=== PATIENT | female | born 1945 | race Caucasian/White ===

== ENCOUNTER 2020-05-19 08:38 | Emergency (ER) | payer MEDICARE, SELFPAY ==
[2020-05-19] VITALS (12 sets, daily range): BP systolic 131–175; BP diastolic 67–90; PULSE 50–82; RESP 14–24; TEMP 36.4–37; O2SAT 94–98; BMI 24.9
--- NOTE | 2020-05-19 08:42 | CTR_ITS ---
PROCEDURE INFORMATION: Exam: CT Head Without Contrast Exam date and time: 05/19/2020 8:44 AM Age: 74 years old Clinical indication: Altered mental status/memory loss; Confusion or disorientation TECHNIQUE: Imaging protocol: Computed tomography of the head without contrast. Radiation optimization: All CT scans at this facility use at least one of these dose optimization techniques: automated exposure control; mA and/or kV adjustment per patient size (includes targeted exams where dose is matched to clinical indication); or iterative reconstruction. COMPARISON: No relevant prior studies available. RADIATION DOSE METRICS: Total DLP (mGy-cm): 715.36 FINDINGS: Brain: No abnormal densities. No hemorrhage. Unremarkable white matter. No mass effect. Cerebral ventricles: There is generalized prominence of the ventricles and sulci indicating chronic atrophy. Bones/joints: Unremarkable. No acute fracture. Paranasal sinuses: Visualized sinuses are unremarkable. No fluid levels. Mastoid air cells: Visualized mastoid air cells are well aerated. Soft tissues: Unremarkable. CT/CT head wo con* [id number] IMPRESSION: No acute intracranial abnormality. Radiation Dose CTDIVOL = (mGy): DLP = 715.36 (mGy-cm)
--- NOTE | 2020-05-19 08:46 | ED_ITS ---
HPI - Altered Mental Status General: Chief Complaint: Altered Mental Status Stated Complaint: AMS; HALLUCINATIONS Time Seen by Provider: 05/19/20 08:39 Source: patient and EMS Mode of arrival: EMS Limitations: no limitations History of Present Illness: HPI narrative: 74-year-old female presents here by EMS for confusion along with hallucinations. Spoke to patient and sister dave singh has been having auditory hallucinations. She believes there is been people in and out of her house and trying to limit her basement. Sister states she has had some slight confusion in her believes she may have dementia. Patient is able answer all my questions here appropriately currently. Does seem to be that she has been having some hallucinations. Patient has been tearful here states that at times she is scared for her life. She states she believes there is been people at her house that may harm her and speak to family has not been anyone in the house. Review of Systems Const: Denies: fever(s), chills, body aches or change in appetite Eyes: Denies: blurry vision or eye discomfort ENMT: Denies: throat pain or dental pain Card: Denies: chest pain Resp: Denies: dyspnea GI: Denies: abdominal pain, nausea, vomiting or diarrhea : Denies: dysuria Musc: Denies: neck pain or back pain Skin/Breast: Denies: rash Neuro: Reports: confusion Psych: Reports: paranoia Errol/Lymph: Denies: easy bruising All/Imm: Denies: urticaria Physical Exam Const: COMMON NORMALS: no acute distress, patient oriented x3 and healthy appearing HENMT: COMMON NORMALS: normocephalic and atraumatic HEAD & SCALP: normocephalic and atraumatic Eye: COMMON NORMALS: Equal, round and reactive pupils present and EOMs intact bilaterally PUPIL: Yes Equal, round and reactive pupils present Neck/C-Spine: COMMON NORMALS: full ROM and supple Chest: COMMONS NORMALS: normal inspection of the chest and normal palpation of entire chest wall Resp: COMMON NORMALS: normal respiratory effort, No retractions, No use of accessory muscles and clear to auscultation bilaterally AUSCULTATION: clear to auscultation bilaterally Cardio: COMMON NORMALS: regular rate, regular rhythm and No murmurs present (Cardio) RATE: regular rate RHYTHM: regular rhythm GI: COMMON NORMALS: Normal to inspection, nondistended, normoactive bowel sounds present, Soft to palpation, non-tender and no masses PALPATION: Yes Soft to palpation Extremity: COMMON NORMALS: normal to inspection and full ROM Neuro: COMMON NORMALS: patient oriented x3, moves all extremities and no focal motor deficits Psych: COMMON NORMALS: mental status grossly normal, Normal thought process present and cooperative THOUGHT PROCESS: Normal thought process present Skin: COMMON NORMALS: no rashes or lesions noted and no wounds GENERAL SKIN EXAM: no rashes or lesions noted Course Vital Signs: Vital signs: Vital Signs Temperature 97.6 F 05/19/20 15:33 Pulse Rate 56 L 05/19/20 15:33 Respiratory Rate 18 05/19/20 15:33 Blood Pressure 162/87 05/19/20 15:33 Pulse Oximetry 96 05/19/20 15:33 MDM - Altered Mental Status MDM Narrative: Medical decision making narrative: Patient presents here with hallucinations along with depression. Patient is medically cleared and well- appearing here. Spoke to psychiatrist at [facility] who is excepting. Patient has been voluntarily wanting to be placed for hallucinations. She is medically cleared and stable at this time. Lab Data: Labs: Lab Results 05/19/20 05/19/20 05/19/20 Range/Units 09:07 09:07 09:20 WBC 5.2 (4.0-10.0) 10^3/ uL RBC 4.42 (4.1-5.3) 10^6/u L Hgb 13.3 (11.5-15.3) g/dL Hct 41.6 (37.0-47.0) % MCV 94.1 (81-99) fL MCH 30.1 (28.0-34.0) pg MCHC 32.0 (30.0-36.0) g/dL RDW 12.3 (12.1-15.1) % Plt Count 155 (130-400) 10^3/c mm MPV 12.5 H (7.4-10.4) fL Neut % (Auto) 75.9 % Lymph % (Auto) 15.0 % [place] % (Auto) 8.1 % Eos % (Auto) 0.2 % Baso % (Auto) 0.6 % Neut # (Auto) 3.95 (1.8-7.7) 10^3/u L Lymph # (Auto) 0.8 (0.8-4.8) 10^3/u L [place] # (Auto) 0.4 (0.2-0.9) 10^3/u L Eos # (Auto) 0.0 (0.0-0.8) 10^3/u L Baso # (Auto) 0.0 (0.0-0.1) 10^3/u L Nucleated RBC % (a uto) 0 % Nucleated RBCs # 0.0 /100WBC Sodium (136-145) mmol/L Potassium (3.5-5.1) mmol/L Chloride (98-107) mmol/L Carbon Dioxide (22-29) mmol/L Anion Gap (5-19) BUN (8-23) mg/dL Creatinine (0.5-0.9) mg/dL GFR Calculation Glucose (65-115) mg/dL Calculated Osmolal ity (285-295) mOsm/k g Calcium (8.5-10.5) mg/dL Total Bilirubin (0.15-1.2) mg/dL AST (0-32) U/L ALT (0-33) U/L Alkaline Phosphata se (35-105) IU/L Total Protein (6.6-8.7) g/dL Albumin (3.5-5.2) g/dL Globulin (1.3-4.6) g/dL Urine Color Straw (Yellow) Urine Appearance Hazy A (CLEAR) Urine pH 9 H (5-7) Ur Specific Gravit y 1.015 (1.005-1.030) Urine Protein Neg (Negative) Urine Glucose (UA) 1+ (Normal) Urine Ketones Negative (Negative) Urine Blood 2+ H (Negative) Urine Nitrate Negative (Negative) Urine Bilirubin Neg (Negative) Urine Urobilinogen Norm (Negative) mg/dL Ur Leukocyte Maggie ase Negative (Negative) Urine RBC 0-4 H (0-2) /hpf Urine WBC 5-10 H (0-5) /hpf Ur Squamous Epith Cells 5-10 H (0-5) /hpf Amorphous Sediment 3+ /hpf Urine Bacteria Trace (NONE) /hpf Salicylates (3-10) mg/dL Urine Opiates Scre en Negative (Negative) ng/mL Acetaminophen (10-30) ug/mL Ur Barbiturates Sc reen Negative (Negative) ng/mL Ur Phencyclidine S crn Negative (Negative) ng/mL Ur Amphetamines Sc reen Negative (Negative) ng/mL U Benzodiazepines Scrn Negative (Negative) ng/mL Urine Cocaine Scre en Negative (Negative) ng/mL U Marijuana (THC) Screen Negative (Negative) ng/mL Ethyl Alcohol (0-10) mg/dL Influenza Type A A g (Negative) Influenza Type B A g (Negative) SARS-CoV-2 Ag (Rap id) (Negative) 05/19/20 05/19/20 05/19/20 Range/Units 09:20 13:43 13:43 WBC (4.0-10.0) 10^3/ uL RBC (4.1-5.3) 10^6/u L Hgb (11.5-15.3) g/dL Hct (37.0-47.0) % MCV (81-99) fL MCH (28.0-34.0) pg MCHC (30.0-36.0) g/dL RDW (12.1-15.1) % Plt Count (130-400) 10^3/c mm MPV (7.4-10.4) fL Neut % (Auto) % Lymph % (Auto) % [place] % (Auto) % Eos % (Auto) % Baso % (Auto) % Neut # (Auto) (1.8-7.7) 10^3/u L Lymph # (Auto) (0.8-4.8) 10^3/u L [place] # (Auto) (0.2-0.9) 10^3/u L Eos # (Auto) (0.0-0.8) 10^3/u L Baso # (Auto) (0.0-0.1) 10^3/u L Nucleated RBC % (a uto) % Nucleated RBCs # /100WBC Sodium 145 (136-145) mmol/L Potassium 3.2 L (3.5-5.1) mmol/L Chloride 103 (98-107) mmol/L Carbon Dioxide 30 H (22-29) mmol/L Anion Gap 15.2 (5-19) BUN 16 (8-23) mg/dL Creatinine 0.7 (0.5-0.9) mg/dL GFR Calculation Not Reportable Glucose 229 H (65-115) mg/dL Calculated Osmolal ity 308 H (285-295) mOsm/k g Calcium 10.0 (8.5-10.5) mg/dL Total Bilirubin 0.5 (0.15-1.2) mg/dL AST 13 (0-32) U/L ALT 10 (0-33) U/L Alkaline Phosphata se 83 (35-105) IU/L Total Protein 8.1 (6.6-8.7) g/dL Albumin 4.2 (3.5-5.2) g/dL Globulin 3.9 (1.3-4.6) g/dL Urine Color (Yellow) Urine Appearance (CLEAR) Urine pH (5-7) Ur Specific Gravit y (1.005-1.030) Urine Protein (Negative) Urine Glucose (UA) (Normal) Urine Ketones (Negative) Urine Blood (Negative) Urine Nitrate (Negative) Urine Bilirubin (Negative) Urine Urobilinogen (Negative) mg/dL Ur Leukocyte Maggie ase (Negative) Urine RBC (0-2) /hpf Urine WBC (0-5) /hpf Ur Squamous Epith Cells (0-5) /hpf Amorphous Sediment /hpf Urine Bacteria (NONE) /hpf Salicylates < 0.3 L (3-10) mg/dL Urine Opiates Scre en (Negative) ng/mL Acetaminophen < 5.0 L (10-30) ug/mL Ur Barbiturates Sc reen (Negative) ng/mL Ur Phencyclidine S crn (Negative) ng/mL Ur Amphetamines Sc reen (Negative) ng/mL U Benzodiazepines Scrn (Negative) ng/mL Urine Cocaine Scre en (Negative) ng/mL U Marijuana (THC) Screen (Negative) ng/mL Ethyl Alcohol < 10 (0-10) mg/dL Influenza Type A A g Negative (Negative) Influenza Type B A g Negative (Negative) SARS-CoV-2 Ag (Rap id) Negative (Negative) Imaging Data^: CT Head: Radiologist's impression: [address] [address] [address] Scan Report Signed Patient: Claire Milian Unit #: [id number] : 1945 Age/Sex: 74 / F ADM Date: 05/19/20 Loc: ER Room/Bed: Attending Dr: Ordering Provider/Ordering MD: Claus Magallanes MD Date of Service: 05/19/20 Procedure(s): CT head wo con* [id number] Accession Number(s): [id number] Report Number: [id number] PROCEDURE INFORMATION: Exam: CT Head Without Contrast Exam date and time: 05/19/2020 8:44 AM Age: 74 years old Clinical indication: Altered mental status/memory loss; Confusion or disorientation TECHNIQUE: Imaging protocol: Computed tomography of the head without contrast. Radiation optimization: All CT scans at this facility use at least one of these dose optimization techniques: automated exposure control; mA and/or kV adjustment per patient size (includes targeted exams where dose is matched to clinical indication); or iterative reconstruction. COMPARISON: No relevant prior studies available. RADIATION DOSE METRICS: Total DLP (mGy-cm): 715.36 FINDINGS: Brain: No abnormal densities. No hemorrhage. Unremarkable white matter. No mass effect. Cerebral ventricles: There is generalized prominence of the ventricles and sulci indicating chronic atrophy. Bones/joints: Unremarkable. No acute fracture. Paranasal sinuses: Visualized sinuses are unremarkable. No fluid levels. Mastoid air cells: Visualized mastoid air cells are well aerated. Soft tissues: Unremarkable. CT/CT head wo con* [id number] IMPRESSION: No acute intracranial abnormality. CXR: Radiologist's impression: [place] [address] XRay Report Signed Patient: Claire Milian Unit #: [id number] : 1945 Age/Sex: 74 / F ADM Date: 05/19/20 Loc: ER Room/Bed: Attending Dr: Ordering Provider/Ordering MD: Claus Magallanes MD Date of Service: 05/19/20 Procedure(s): XR chest 1V portable [id number] Accession Number(s): [id number] Report Number: [id number] PROCEDURE INFORMATION: Exam: XR Chest, 1 View Exam date and time: 05/19/2020 2:01 PM Age: 74 years old Clinical indication: Other: AMS; Additional info: Transfer protocol TECHNIQUE: Imaging protocol: XR of the chest Views: 1 view. COMPARISON: No relevant prior studies available. FINDINGS: Lungs: Unremarkable. No consolidation. Pleural space: Unremarkable. No pleural effusion. No pneumothorax. Heart/Mediastinum: Unremarkable. No cardiomegaly. Bones/joints: Unremarkable. XR/XR chest 1V portable [id number] IMPRESSION: No acute findings. EKG Data^: EKG 1: Attestation: I personally reviewed and interpreted this EKG as follows: EKG interpretation date: 05/19/20 EKG interpretation time: 09:12 Interpretation: nsr hr [address] or t wave abnormalities qrs 111 qtc 445 Discharge Plan Discharge Patient Disposition: Xfer Other Clinical Impression: Hallucinations, Depression Condition: Stable Coding Level of Care Code ED Embossing Clerk for Chg Fwd Exam Comprehensive
--- NOTE | 2020-05-19 08:52 | ECG_ITS ---
[facility] Test Date: 2020-05-19 Pat Name: Claire Milian Department: Room: Gender: Female Risk Reduction Counselor: : 1945 Requested By: Claus Magallanes Order Number: [id number] Tayler MD: Meseret Lorenzo M.D. Measurements Intervals [place] Rate: 76 P: 61 IL: 116 QRS: -44 QRSD: 111 T: 43 QT: 415 QTc: 468 Interpretive Statements SINUS RHYTHM WITH SHORT IL INTERVAL LEFT AXIS DEVIATION [QRS AXIS < -30] SEPTAL MYOCARDIAL INFARCTION , OF INDETERMINATE AGE [40+ ms Q WAVE IN V1/V2] MODERATE T-WAVE ABNORMALITY, CONSIDER ANTERIOR ISCHEMIA Compared to ECG 12/10/2017 20:22:00 Short IL interval now present Myocardial infarct finding now present T-wave abnormality now present Possible ischemia now present Incomplete right bundle-branch block no longer present Left ventricular hypertrophy no longer present Electronically Signed On 05-19-2020 12:08:49 CDT by Meseret Lorenzo M.D. [id number]
[2020-05-19 09:40] LABS: Basophils % 0.6 %; Eosinophils % 0.2 %; Hematocrit 41.6 % (37.0-47.0); Hemoglobin 13.3 g/dL (11.5-15.3); Lymphocytes # 0.8 10^3/uL (0.8-4.8); Mean Corpuscular Hemoglobin 30.1 pg (28.0-34.0); Mean Corpuscular Volume 94.1 fL (81-99); Mean Platelet Volume 12.5 fL (7.4-10.4); Monocytes # 0.4 10^3/uL (0.2-0.9); Monocytes % 8.1 %; Neutrophils # 3.95 10^3/uL (1.8-7.7); Neutrophils % 75.9 %; Nucleated Red Blood Cells % 0 %; Platelet Count 155 10^3/cmm (130-400); Red Blood Count 4.42 10^6/uL (4.1-5.3); Red Cell Distribution Width 12.3 % (12.1-15.1); White Blood Count 5.2 10^3/uL (4.0-10.0)
[2020-05-19 09:50] LABS: Amphetamines Screen Urine Negative (Negative); Barbiturates Screen Urine Negative (Negative); Benzodiazepines Screen Urine Negative (Negative); Cocaine Screen Urine Negative (Negative); Opiate Screen Urine Negative (Negative); PCP Screen Urine Negative (Negative); THC Screen Urine Negative (Negative)
[2020-05-19 09:55] LABS: Bilirubin Urine Neg (Negative); Blood Urine 2+ (Negative); Glucose Urine UA 1+ (Normal); Ketones Urine Negative (Negative); Nitrate Urine Negative (Negative); Protein Urine Neg (Negative); Specific Gravity, Urine 1.015 (1.005-1.030); Urine Appearance Hazy (CLEAR); Urine Color Straw (Yellow); pH Urine 9 (5-7)
[2020-05-19 09:56] LABS: Add Urine Culture? No; Add Urine Microscopic? YES; Amorphous Sediment Urine 3+ /hpf; Bacteria Urine TRACE /hpf; Leukocyte Esterase Urine Negative (Negative); RBC Urine 0-4 /hpf (0-2); Urobilinogen Urine Norm (Negative)
[2020-05-19 10:02] LABS: Alanine Aminotransferase 10 U/L (0-33); Albumin Level 4.2 g/dL (3.5-5.2); Alkaline Phosphatase 83 IU/L (35-105); Anion Gap 15.2 (5-19); Aspartate Amino Transferase 13 U/L (0-32); Blood Urea Nitrogen 16 mg/dL (8-23); Carbon Dioxide 30 mmol/L (22-29); Chloride 103 mmol/L (98-107); Creatinine Clr Calc Pharmacy 58.4612; Globulin 3.9 g/dL (1.3-4.6); Glucose 229 mg/dL (65-115); Osmolality Calculated 308 mOsm/kg (285-295); Potassium 3.2 mmol/L (3.5-5.1); Sodium 145 mmol/L (136-145); Total Bilirubin 0.5 mg/dL (0.15-1.2); Total Protein 8.1 g/dL (6.6-8.7)
[2020-05-19 10:09] LABS: Acetaminophen < 5.0 ug/mL (10-30); Alcohol Level < 10 mg/dL (0-10); Salicylate < 0.3 mg/dL (3-10)
[2020-05-19] MEDS: metoprolol tartrate 50 mg Tablet PO (10:37)
--- NOTE | 2020-05-19 11:12 | PC.NURSE ---
Need 2 trays
--- NOTE | 2020-05-19 13:40 | XRR_ITS ---
PROCEDURE INFORMATION: Exam: XR Chest, 1 View Exam date and time: 05/19/2020 2:01 PM Age: 74 years old Clinical indication: Other: AMS; Additional info: Transfer protocol TECHNIQUE: Imaging protocol: XR of the chest Views: 1 view. COMPARISON: No relevant prior studies available. FINDINGS: Lungs: Unremarkable. No consolidation. Pleural space: Unremarkable. No pleural effusion. No pneumothorax. Heart/Mediastinum: Unremarkable. No cardiomegaly. Bones/joints: Unremarkable. XR/XR chest 1V portable [id number] IMPRESSION: No acute findings.
[2020-05-19 14:15] LABS: Influenza A by IFA Negative (Negative); Influenza B by IFA Negative (Negative); SARS Covid-2 Antigen Negative (Negative)
--- NOTE | 2020-05-19 14:50 | PC.NURSE ---
Swabbed for Admission
[2020-05-19] MEDS: LORazepam 1 mg Tablet PO (17:16)
--- NOTE | 2020-05-19 19:01 | PC.NURSE ---
patient report received from CT Scott and care transferred to CT Marmolejo
== END 2020-05-19 21:30 | disposition other institution (70) ==
PROVIDERS: Emergency Provider Emergency Medicine
DX: F32.9 Major depressive disorder, single episode, unspecified (principal); R44.0 Auditory hallucinations
CPT/HCPCS: 12345; 70450; 71045; 80053; 80306; 80307; 81001; 85025; 87426; 87804; 93005; 99284; 99285

== ENCOUNTER 2020-07-10 09:26 | Inpatient (IN) | payer MEDICARE, SELFPAY ==
[2020-07-10] VITALS (48 sets, daily range): BP systolic 77–176; BP diastolic 48–94; PULSE 43–84; RESP 12–27; TEMP 36.4–36.7; O2SAT 83–99; BMI 21.4
--- NOTE | 2020-07-10 09:47 | XR_ITS ---
WS: [id number] XR chest 1V portable [id number] REASON FOR EXAM: dyspnea FINDINGS: On the previous examination of 05/19/2020 left lower lung field was clear with sharp definition of th e left ventricle and diaphragm. Currently there is blunting of the left costophrenic angle and an int erstitial infiltrative pattern seen in the left lower lobe with some obscuration of the left heart noemí rder and left diaphragm. Tortuous thoracic aorta normal heart. XR/XR chest 1V portable [id number] IMPRESSION: Interval change in the left lower chest as described above. The findings are of unknown chronicity but compatible with acute/subacute pneumonitis.
--- NOTE | 2020-07-10 09:49 | CT_ITS ---
WS: [id number] CT CHEST ANGIOGRAPHY WITH REFORMATS HISTORY: dyspnea TECHNIQUE: Contiguous axial images are obtained through the chest during arterial injection of intrav enous contrast. Images are reconstructed to evaluate the pulmonary arteries. MIP imaging also reviewe d. All CT scans at [facility] use at least one of these dose optimization techniques: aut omated exposure control; mA and/or kV adjustment per patient size (includes targeted exams where dose is matched to clinical indication); or iterative reconstruction. CONTRAST: Omnipaque 350; 95 mL IV. DLP: 483.38 mGy.cm COMPARISON: None available. Very good opacification of the pulmonary arteries. No pulmonary emboli are identified. Mild atheroscl erosis aorta. No aneurysm. Heart size is very slightly enlarged. Dense areas of consolidation at the lung bases consistent with atelectasis. Partial atelectasis of the RIGHT lower lobe. Complete atelect asis of the LEFT lower lobe. There is slight LEFT lateral deviation of the heart due to the volume lo ss in the LEFT thorax. Nasogastric tube is in good position. Endotracheal tube is also in good position. Small mediastinal a nd hilar lymph nodes. Subcarinal lymph node is the largest measuring 9 mm. Mild pulmonary hyperexpans ion. There are a few scattered areas of groundglass attenuation in the periphery of the LEFT upper lo be with interstitial thickening minimal in the RIGHT middle and RIGHT lower lobes. No pleural effusio n. There is a large cyst in the superior RIGHT lobe the liver measuring 9.0 x 10.2 cm. Mild anterior wedging of T6. 30% compression fracture of T6. CT/CT angio chest PE protcl [id number] IMPRESSION: 1. No pulmonary embolism. 2. Complete atelectasis LEFT lower lobe. 3. Partial atelectasis RIGHT lower lobe. 4. Nasogastric and endotracheal tubes are in good position.
[2020-07-10 09:59] LABS: Basophils # 0.1 10^3/uL (0.0-0.1); Basophils % 0.4 %; Eosinophils % 0.3 %; Hematocrit 42.3 % (37.0-47.0); Hemoglobin 13.5 g/dL (11.5-15.3); Lymphocytes # 0.5 10^3/uL (0.8-4.8); Lymphocytes % 3.5 %; Mean Corpuscular HGB Conc 31.9 g/dL (30.0-36.0); Mean Corpuscular Hemoglobin 29.7 pg (28.0-34.0); Mean Platelet Volume 11.9 fL (7.4-10.4); Monocytes # 0.6 10^3/uL (0.2-0.9); Monocytes % 4.2 %; Neutrophils % 91.1 %; Nucleated Red Blood Cells % 0 %; Platelet Count 122 10^3/cmm (130-400); Red Blood Count 4.55 10^6/uL (4.1-5.3); Red Cell Distribution Width 13.2 % (12.1-15.1); White Blood Count 13.5 10^3/uL (4.0-10.0)
[2020-07-10 10:11] LABS: Alanine Aminotransferase 35 U/L (0-33); Albumin Level 3.1 g/dL (3.5-5.2); Alkaline Phosphatase 65 IU/L (35-105); Blood Urea Nitrogen 37 mg/dL (8-23); C Reactive Protein 310.2 mg/L (0.0-4.9); Carbon Dioxide 26 mmol/L (22-29); Chloride 97 mmol/L (98-107); Creatinine Clr Calc Pharmacy 54.8733; Globulin 4.6 g/dL (1.3-4.6); Glucose 291 mg/dL (65-115); Lactic Sepsis W/Reflex 1.7 mmol/L (0.5-2.2); Magnesium 2.5 mg/dL (1.7-2.3); Osmolality Calculated 303 mOsm/kg (285-295); Sodium 137 mmol/L (136-145); Total Bilirubin 0.3 mg/dL (0.15-1.2); Total Protein 7.7 g/dL (6.6-8.7)
[2020-07-10] MEDS: succinylcholine 20 mg/mL SDV 10mL 80 MG IV (10:12)
[2020-07-10] MEDS: vecuronium 10 mg SDV IVP (10:21)
[2020-07-10 10:22] LABS: Anion Gap 18.1 (5-19); Aspartate Amino Transferase 25 U/L (0-32); Lactate Dehydrogenase 218 U/L (135-214); Potassium 4.1 mmol/L (3.5-5.1)
--- NOTE | 2020-07-10 10:52 | PC.NURSE ---
RSI began at 1009. ED physician, Nure *1, RT *1, and nurse tech *1 in room. Pt intubated at 1013. 8.0 ETtube 22 in at teeth. Pt tolerated procedure well.
[2020-07-10 11:01] LABS: Fibrinogen 804 mg/dL (174-498)
[2020-07-10 11:03] LABS: D Dimer 0.96 ug/mIFEU (0-0.59)
--- NOTE | 2020-07-10 11:05 | ED_ITS ---
HPI - COVID General: Chief Complaint: COVID symptoms Stated Complaint: ams Time Seen by Provider: 07/10/20 09:47 Triage information: Has fever, cough or shortness of breath . Exposure to COVID + person last 14 days History of Present Illness: HPI Narrative: 74-year-old female from a [facility] who was tested positive for Covid about 12 to 13 days ago. Comes in with increasing shortness of breath. She is currently on 15 L by mask and still satting in the low 80s. We confirmed on her paperwork she is a full code and discussed with the family and they would still want her to be a full code. She has dementia and is aphasic. MD complaint: known COVID positive Prior covid testing: yes, results known Prior testing date: 06/27/20 COVID 19 common symptoms: positive cough, non-productive cough and dyspnea Treatment prior to arrival: oxygen COVID Results: SARS-CoV-2 Antigen (Rapid) Negative (Negative) 05/19/20 13:43 05/19/20 Review of Systems General: Reports: ROS unobtainable due to medical condition and ROS unobtainable due to mental status Resp: Reports: dyspnea and non-productive cough PFS ED PFSH: Medical History (Updated 07/10/20 @ 14:00 by Joey Wynn MD) COVID-19 Dementia Physical Exam HENMT: COMMON NORMALS: normocephalic, atraumatic and hearing grossly normal bilaterally HEAD & SCALP: normocephalic and atraumatic Neck/C-Spine: COMMON NORMALS: no JVD Resp: AUSCULTATION: rhonchi, wheezes and diminished lung sounds Cardio: COMMON NORMALS: no JVD, regular rate, regular rhythm and No murmurs present (Cardio) RATE: regular rate RHYTHM: regular rhythm GI: COMMON NORMALS: Soft to palpation and No hepatosplenomegaly present AUSCULTATION: Yes normoactive bowel sounds PALPATION: Yes Soft to palpation, No Tenderness to palpation present (GI), No Guarding due to palpation present (GI) and Yes No hepatosplenomegaly present Extremity: COMMON NORMALS: normal to inspection, capillary refill normal, no clubbing, cyanosis or edema, no calf tenderness and no pedal edema Procedures Intubation Time out performed: Yes sedative: Etomidate paralytic: Succinylcholine Laryngoscope: fiber optic video scope Assist Device Used: fiber optic device ET Tube Size: 8 ET Tube Uncuffed: No Tube Secured Depth (cm): 22 Tube Secured Location: teeth Tube Placement Confirmation: visualized tube passing through cords, equal breath sounds bilaterally, no breath sounds over epigastrium and confirmation by capnometry Patient Tolerated Procedure: well Intubation Complications: none Course Vital Signs: Vital signs: Vital Signs Temperature 97.9 F 07/10/20 09:31 Pulse Rate 58 L 07/10/20 13:47 Respiratory Rate 20 H 07/10/20 13:47 Blood Pressure 92/60 07/10/20 13:47 Pulse Oximetry 89 L 07/10/20 13:47 MDM - COVID MDM Narrative: Medical decision making narrative: Confirmed full CODE STATUS with the family. Patient was emergently intubated by RSI. Patient tolerated well and is improving her oxygen sats will cover with IV antibiotics and start remdesivir dexamethasone discussed with Lab Data: Labs: Lab Results 07/10/20 07/10/20 07/10/20 Range/Units 09:30 09:30 09:30 WBC 13.5 H (4.0-10.0) 10^3/ uL RBC 4.55 (4.1-5.3) 10^6/u L Hgb 13.5 (11.5-15.3) g/dL Hct 42.3 (37.0-47.0) % MCV 93.0 (81-99) fL MCH 29.7 (28.0-34.0) pg MCHC 31.9 (30.0-36.0) g/dL RDW 13.2 (12.1-15.1) % Plt Count 122 L (130-400) 10^3/c mm MPV 11.9 H (7.4-10.4) fL Neut % (Auto) 91.1 % Lymph % (Auto) 3.5 % [place] % (Auto) 4.2 % Eos % (Auto) 0.3 % Baso % (Auto) 0.4 % Neut # (Auto) 12.30 H (1.8-7.7) 10^3/u L Lymph # (Auto) 0.5 L (0.8-4.8) 10^3/u L [place] # (Auto) 0.6 (0.2-0.9) 10^3/u L Eos # (Auto) 0.0 (0.0-0.8) 10^3/u L Baso # (Auto) 0.1 (0.0-0.1) 10^3/u L Nucleated RBC % (a uto) 0 % Nucleated RBCs # 0.0 /100WBC Fibrinogen 804 H (174-498) mg/dL D-Dimer 0.96 H (0-0.59) ug/mIFE U Specimen Type Sample Site ABG pH (7.35-7.45) ABG pCO2 (35-45) mmHg ABG pO2 (80.0-100.0) mmH g ABG HCO3 (22-26) mmol/L ABG O2 Saturation ABG Base Excess (-2.0-2.0) mmol/ L Beto Test A-a O2 Gradient Hematocrit (37-47) % Hgb O2 Saturation (95-100) % Carboxyhemoglobin (0.4-20.1) %THgb Methemoglobin (0.4-1.5) % Total Hemoglobin (12-16) g/dL Ionized Calcium (1.1-1.4) mmol/L O2 Delivery Device FiO2 % Sales Broker ID Sodium 137 (136-145) mmol/L Potassium 4.1 (3.5-5.1) mmol/L Chloride 97 L (98-107) mmol/L Carbon Dioxide 26 (22-29) mmol/L Anion Gap 18.1 (5-19) BUN 37 H (8-23) mg/dL Creatinine 0.8 (0.5-0.9) mg/dL GFR Calculation Not Reportable Glucose 291 H (65-115) mg/dL Calculated Osmolal ity 303 H (285-295) mOsm/k g Lactic Acid (0.5-2.2) mmol/L Calcium 9.0 (8.5-10.5) mg/dL Magnesium 2.5 H (1.7-2.3) mg/dL Total Bilirubin 0.3 (0.15-1.2) mg/dL AST 25 (0-32) U/L ALT 35 H (0-33) U/L Alkaline Phosphata se 65 (35-105) IU/L Lactate Dehydrogen ase 218 H (135-214) U/L C-Reactive Protein 310.2 H (0.0-4.9) mg/L Total Protein 7.7 (6.6-8.7) g/dL Albumin 3.1 L (3.5-5.2) g/dL Globulin 4.6 (1.3-4.6) g/dL 07/10/20 07/10/20 07/10/20 Range/Units 09:30 09:38 11:10 WBC (4.0-10.0) 10^3/ uL RBC (4.1-5.3) 10^6/u L Hgb (11.5-15.3) g/dL Hct (37.0-47.0) % MCV (81-99) fL MCH (28.0-34.0) pg MCHC (30.0-36.0) g/dL RDW (12.1-15.1) % Plt Count (130-400) 10^3/c mm MPV (7.4-10.4) fL Neut % (Auto) % Lymph % (Auto) % [place] % (Auto) % Eos % (Auto) % Baso % (Auto) % Neut # (Auto) (1.8-7.7) 10^3/u L Lymph # (Auto) (0.8-4.8) 10^3/u L [place] # (Auto) (0.2-0.9) 10^3/u L Eos # (Auto) (0.0-0.8) 10^3/u L Baso # (Auto) (0.0-0.1) 10^3/u L Nucleated RBC % (a uto) % Nucleated RBCs # /100WBC Fibrinogen (174-498) mg/dL D-Dimer (0-0.59) ug/mIFE U Specimen Type Arterial Arterial Sample Site Radial , left Radial , left ABG pH 7.49 H 7.44 (7.35-7.45) ABG pCO2 35.8 37.3 (35-45) mmHg ABG pO2 48.0 L 86.7 (80.0-100.0) mmH g ABG HCO3 27.0 H 25.3 (22-26) mmol/L ABG O2 Saturation 86.8 98 ABG Base Excess 3.7 H 1.3 (-2.0-2.0) mmol/ L Beto Test Pos Na A-a O2 Gradient Not Reportable Not Reportable Hematocrit 42.5 4.3 L (37-47) % Hgb O2 Saturation 85.3 L 97.7 (95-100) % Carboxyhemoglobin 0.9 0.5 (0.4-20.1) %THgb Methemoglobin 0.7 Not Reportable (0.4-1.5) % Total Hemoglobin 13.9 14.0 (12-16) g/dL Ionized Calcium 1.1 1.1 (1.1-1.4) mmol/L O2 Delivery Device Oxymask Vent FiO2 60.0 % Sales Broker ID [employer] Sodium 142.0 144.0 H (136-145) mmol/L Potassium 3.9 3.7 (3.5-5.1) mmol/L Chloride (98-107) mmol/L Carbon Dioxide (22-29) mmol/L Anion Gap (5-19) BUN (8-23) mg/dL Creatinine (0.5-0.9) mg/dL GFR Calculation Glucose 311.0 H 289.0 H (65-115) mg/dL Calculated Osmolal ity (285-295) mOsm/k g Lactic Acid 1.7 (0.5-2.2) mmol/L Calcium (8.5-10.5) mg/dL Magnesium (1.7-2.3) mg/dL Total Bilirubin (0.15-1.2) mg/dL AST (0-32) U/L ALT (0-33) U/L Alkaline Phosphata se (35-105) IU/L Lactate Dehydrogen ase (135-214) U/L C-Reactive Protein (0.0-4.9) mg/L Total Protein (6.6-8.7) g/dL Albumin (3.5-5.2) g/dL Globulin (1.3-4.6) g/dL COVID Results: SARS-CoV-2 Antigen (Rapid) Negative (Negative) 05/19/20 13:43 05/19/20 Critical Care Time Critical Care Time: Critical Care Time: Yes Total Critical Care Time: 30 Attestation: This case had a high probability of a clinically significant, sudden, or life threatening deterioration of this patient's condition which required my full and direct attention, intervention and personal management. Discharge Plan Discharge Patient Disposition: Admitted As Inpatient Clinical Impression: COVID-19, Dementia, Pneumonia, Aphasia Condition: Stable Coding Level of Care Code ED [employer] Dean for Chg Fwd Exam Detailed
[2020-07-10 11:32] LABS: ABG PCO2 37.3 mmHg (35-45); ABG PH Result 7.44 (7.35-7.45); Base Excess ABG 1.3 mmol/L (-2.0-2.0); Blood Gas Operator Identificat CAK; HCO3 ABG 25.3 mmol/L (22-26); Oxygen Device VENT; Oxygen Saturation ABG 98; PO2 ABG 86.7 mmHg (80.0-100.0); Potassium Level - ABG 3.7 mmol/L (3.5-5.0)
[2020-07-10 11:33] LABS: Arterial Blood Gas Hematocrit 4.3 % (37-47); Blood Gas Sample Type Arterial
[2020-07-10 11:34] LABS: Carboxyhemoglobin 0.5 %THgb (0.4-20.1); HGB O2 Sat 97.7 % (95-100); Ionized Calcium Level - ABG 1.1 mmol/L (1.1-1.4)
[2020-07-10 11:34] LABS: ABG PCO2 35.8 mmHg (35-45); ABG PH Result 7.49 (7.35-7.45)
[2020-07-10 11:35] LABS: Base Excess ABG 3.7 mmol/L (-2.0-2.0); Blood Gas Allen Test POS; Blood Gas Operator Identificat CAK; Oxygen Device OXYMASK; Oxygen Saturation ABG 86.8; Potassium Level - ABG 3.9 mmol/L (3.5-5.0)
[2020-07-10 11:36] LABS: Arterial Blood Gas Hematocrit 42.5 % (37-47); Blood Gas Sample Type Arterial; Carboxyhemoglobin 0.9 %THgb (0.4-20.1); HGB O2 Sat 85.3 % (95-100); Ionized Calcium Level - ABG 1.1 mmol/L (1.1-1.4); Methemoglobin 0.7 % (0.4-1.5); Total Hemoglobin 13.9 g/dL (12-16)
--- NOTE | 2020-07-10 11:43 | XR_ITS ---
WS: [id number] XR chest 1V portable [id number] REASON FOR EXAM: TUBE PLACMENT FINDINGS: Since the previous examination earlier today there is been placement of an endotracheal tube and naso gastric tube which appear in proper position. Compared to the chest x-ray preintubation and nasogastric tube placement, there is opacification of t he medial aspect of the left hemithorax with obscuration of the hemidiaphragm. No other interval change. XR/XR chest 1V portable [id number] IMPRESSION: Nasogastric tube and endotracheal tube placement as above with atelectasis of m edial aspect of the left lower lobe.
--- NOTE | 2020-07-10 11:48 | PC.NURSE ---
pt to CT by stretcher with RT and tech
[2020-07-10] MEDS: iohexol 350 mg/mL 100 mL Btl IV (11:50)
[2020-07-10] MEDS: propofol 1,000 MG/100 ML INJ 1.7 MG IV (12:23)
[2020-07-10] MEDS: dexamethasone 4 mg/mL INJ 6 MG IVP (13:30)
[2020-07-10] MEDS: remdesivir 200 MG in sodium chloride 0.9% (100 ml) 100 ML 100 MG IV (13:30)
--- NOTE | 2020-07-10 13:47 | P.HP_ITS ---
Providers/Chief Complaint Chief Complaint: ams History of Present Illness Claire Milian is a 74 year old female, resident of nursing facility at [facility] was brought to emergency department with worsening mentation and significant desaturation. She was using at nursing facility 5 L by nasal cannula at the baseline and required 15 L to bring saturations to 80s. Patient end up being intubated in ER after Dr. Batista discussed with patient's . Apparently was not able to see patient for the last several months. He reported that patient frequently was unable to recognize him. In emergency department patient had significant amount of thick phlegm suctioned and it was sent to lab for Gram stain and culture. She was diagnosed with Covid 19 infection couple weeks ago. In ER patient was started on dexamethasone and remdesivir as well as Levaquin. CTA showed no evidence of PE but significant atelectasis in both bases. Patient's hospital already left and I was unable to discuss with him. History is limited. Review of Systems Narrative: Unable to obtain as patient is intubated and sedated. Medications/Allergies Home Medications Medication Instructions Recorded Confirmed Last Taken Type acetaminophen 650 mg PO QID PRN 07/10/20 07/10/20 07/09/20 History alprazolam 0.25 mg PO Q8H PRN 07/10/20 07/10/20 07/10/20 History bisacodyl 10 mg NC DAILY PRN 07/10/20 07/10/20 Unknown History dexamethasone 6 mg PO DAILY@14 07/10/20 07/10/20 07/09/20 History divalproex [Depakote ER] 250 mg PO TID@08,,07/10/20 07/10/20 07/09/20 History magnesium hydroxide [Milk of 30 ml PO DAILY PRN 07/10/20 07/10/20 Unknown History Magnesia] olanzapine 5 mg PO QID@00,06,12,18 07/10/20 07/10/20 07/10/20 History pantoprazole 20 mg PO DAILY@06 07/10/20 07/10/20 07/10/20 History sennosides-docusate sodium 1 tab-cap PO DAILY@08 07/10/20 07/10/20 07/09/20 History [Senna-S] tramadol 50 mg PO Q8H PRN 07/10/20 07/10/20 07/09/20 History trazodone 50 mg PO BEDTIME@20 07/10/20 07/10/20 07/09/20 History Allergies Allergy/AdvReac Type Severity Reaction Status Date / Time No Known Allergies Allergy Verified 07/10/20 09:37 PFSH Acute PFSH: Medical History (Updated 07/10/20 @ 14:00 by Joey Wynn MD) COVID-19 Dementia Vitals/I&O/Wt Last Vital Signs Temp 97.9 F 07/10/20 09:31 Pulse 82 07/10/20 12:23 Resp 16 07/10/20 12:50 BP 167/72 07/10/20 12:23 Pulse Ox 90 07/10/20 12:23 07/09/20 07/10/20 07/10/20 22:59 06:59 14:59 Intake Total 4.833 / 4.833 Balance 4.833 / 4.833 Weight last 48 hrs Weight 56.699 kg Physical Exam Const: COMMON NORMALS: no acute distress HENMT: COMMON NORMALS: normocephalic and atraumatic HEAD & SCALP: normocephalic and atraumatic Eye: COMMON NORMALS: conjunctivae normal and no scleral icterus CONJUNCTIVA: Yes conjunctivae normal Neck/C-Spine: COMMON NORMALS: no lymphadenopathy Lymph: LYMPHATIC: no lymphadenopathy noted Resp: OTHER: Minimal bibasilar Rales Cardio: COMMON NORMALS: regular rate, regular rhythm and No murmurs present (Cardio) RATE: regular rate RHYTHM: regular rhythm OTHER: No lower extremity edema GI: COMMON NORMALS: Soft to palpation PALPATION: Yes Soft to palpation RECTAL EXAM: deferred Extremity: COMMON NORMALS: normal to inspection and capillary refill normal Neuro: COMMON NORMALS: no focal motor deficits (On gross examination) SENSORIUM/ORIENTATION: Yes alert Psych: OTHER: Intubated and sedated. Skin: COMMON NORMALS: no rashes or lesions noted Urinary Catheter Management^: Santos: Cath Placed During This Visit: yes Urinary Catheter Date of Insertion: 07/10/20 Urinary Catheter Time of Insertion: 10:20 Data : 07/10/20 09:30 07/10/20 09:30 Micro: Microbiology 07/10/20 10:30 Blood Culture - Preliminary Blood SPECIMEN COLLECTED 07/10/20 09:30 Blood Culture - Preliminary Blood SPECIMEN COLLECTED A&P Assessment and plan (1) Acute on chronic respiratory failure with hypoxia: Status: Acute (2) Community acquired pneumonia: Status: Acute (3) Thrombocytopenia: Most likely related to infection Status: Acute (4) Dehydration: Status: Acute (5) Sepsis: As exhibited by tachypnea and leukocytosis. Patient was not tachycardic and was afebrile on presentation. Status: Acute (6) Dementia: Status: Acute (7) COVID-19: Status: Inactive (8) Diabetes mellitus type 2 in nonobese: Status: Acute Additional A&P Information PLAN: Continue with dexamethasone and remdesivir. Continue with Levaquin and add Zosyn for now as aspiration cannot be completely ruled out. Awaiting culture results. We will gently hydrate with LR. We will try obtaining more information from nursing facility. Attestations Medical Necessity Statement*: Patient with respiratory failure requires close ICU monitoring and treatment. Time Spent in Patient Care: Greater than 35 minutes Coding Level of Care Code Acute Street Commissioner for [facility] Fwd Diagnoses Acute on chronic respiratory failure with hypoxia J96.21 Community acquired pneumonia J18.9 Thrombocytopenia D69.6 Dehydration E86.0 Sepsis A41.9 Dementia F03.90 COVID-19 U07.1 Diabetes mellitus type 2 in nonobese E11.9
[2020-07-10] MEDS: levofloxacin-dextrose 5 % 750 MG/150 ML PREMIX 100 MG IV (14:59)
[2020-07-10] MEDS: piperacillin-tazobactam 3.375 GM in sodium chloride 0.9% (plus) 50 ML IV (16:39)
[2020-07-10] MEDS: enoxaparin 40 mg/0.4 mL Syringe SUBCUT (16:40)
[2020-07-10] MEDS: lactated ringers 1,000 ML 50 ML IV (16:40)
--- NOTE | 2020-07-10 17:53 | PC.NURSE ---
Versed hanging but not infusing when patient arrived from ED. No orders for versed, medication was wasted with Ashia Hinds RN. Dr. Wynn notified of patient's hypotension. Orders received. See SEP.
[2020-07-10] MEDS: OLANZapine 5 mg ODT PO (17:55)
[2020-07-10] MEDS: lactated ringers 1,000 ML 500 ML IV ×2 (18:00→19:43)
[2020-07-10 19:29] LABS: Glucose Point of Care 241 mg/dL (70-110)
[2020-07-11] VITALS (56 sets, daily range): BP systolic 71–129; BP diastolic 45–62; PULSE 38–55; RESP 12–21; TEMP 36.1–36.5; O2SAT 88–98
[2020-07-11] MEDS: piperacillin-tazobactam 3.375 GM in sodium chloride 0.9% (plus) 50 ML IV ×3 (00:26→16:40)
[2020-07-11] MEDS: OLANZapine 5 mg ODT PO ×5 (00:26→23:07)
[2020-07-11 03:54] LABS: Blood Gas Sample Site Brachial, right; Blood Gas Sample Type Arterial; Blood Gas Tidal Volume 0.45
[2020-07-11 04:25] LABS: Basophils % 0.3 %; Hematocrit 32.6 % (37.0-47.0); Hemoglobin 10.3 g/dL (11.5-15.3); Lymphocytes # 0.4 10^3/uL (0.8-4.8); Lymphocytes % 3.5 %; Mean Corpuscular HGB Conc 31.6 g/dL (30.0-36.0); Mean Platelet Volume 13.5 fL (7.4-10.4); Monocytes # 0.7 10^3/uL (0.2-0.9); Monocytes % 5.9 %; Neutrophils # 10.25 10^3/uL (1.8-7.7); Neutrophils % 89.7 %; Nucleated Red Blood Cells % 0 %; Platelet Count 103 10^3/cmm (130-400); Red Blood Count 3.43 10^6/uL (4.1-5.3); Red Cell Distribution Width 13.3 % (12.1-15.1); White Blood Count 11.4 10^3/uL (4.0-10.0)
[2020-07-11 04:52] LABS: Alanine Aminotransferase 23 U/L (0-33); Albumin Level 2.1 g/dL (3.5-5.2); Alkaline Phosphatase 54 IU/L (35-105); Anion Gap 13.1 (5-19); Aspartate Amino Transferase 10 U/L (0-32); Blood Urea Nitrogen 28 mg/dL (8-23); Calcium 7.8 mg/dL (8.5-10.5); Carbon Dioxide 26 mmol/L (22-29); Chloride 104 mmol/L (98-107); Creatinine Clr Calc Pharmacy 54.8733; Globulin 3.3 g/dL (1.3-4.6); Glucose 219 mg/dL (65-115); Osmolality Calculated 300 mOsm/kg (285-295); Potassium 4.1 mmol/L (3.5-5.1); Sodium 139 mmol/L (136-145); Total Bilirubin 0.2 mg/dL (0.15-1.2); Total Protein 5.4 g/dL (6.6-8.7)
[2020-07-11 05:39] LABS: Slide Review Slide Review Perform
[2020-07-11] MEDS: DOPamine drip 400 MG/250 ML PREMIX 10.6 MG IV (05:45)
[2020-07-11 09:07] LABS: Glucose Point of Care 255 mg/dL (70-110)
[2020-07-11 09:22] LABS: ABG PCO2 53.6 mmHg (35-45); ABG PH Result 7.35 (7.35-7.45); Arterial Blood Gas Hematocrit 35.8 % (37-47); Blood Gas Allen Test Pos; Blood Gas Operator Identificat Anonymous; HCO3 ABG 29.6 mmol/L (22-26); PO2 ABG 81.8 mmHg (80.0-100.0)
--- NOTE | 2020-07-11 09:29 | PM.PN ---
Subjective Subjective: Interval history: Patient is intubated and sedated. Her propofol had to be increased and fentanyl was added for appropriate sedation. Patient has been hypotensive since yesterday. She initially responded to IV fluids last evening but it appears that overnight she was started on dopamine drip. Her platelets slightly down to 103. Her blood cultures growing 1 out of 4 bottles gram-positive cocci in clusters. She became bradycardic yesterday afternoon which suspected to be related to Covid and/or remdesivir treatment. Her albumin significantly declined. I had discussion with patient's this morning over the phone. He reports that 3 weeks ago he visited patient at nursing facility and was able to only see her through a window. Reports that she did not recognize him. 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 We have discussed regarding CODE STATUS considering patient's mental, functional and medical status. wants patient to be a full code for now but is going to discuss this with his daughter. Vitals/I&O/Wt Last Vital Signs Temp 97.7 F 07/11/20 02:15 Pulse 55 L 07/11/20 06:15 Resp 20 H 07/11/20 07:29 BP 129/62 07/11/20 06:15 Pulse Ox 97 07/11/20 06:15 07/10/20 07/11/20 07/11/20 22:59 06:59 14:59 Intake Total 908.333 / 1017.586 150 / 9013.461 6048.167 / 2245.167 Output Total 850 / 850 1400 / 2250 Balance 58.333 / 167.586 -1250 / -2419.396 6340.167 / 2245.167 Weight last 48 hrs Weight 56.699 kg Physical Exam Narrative: EXAM NARRATIVE: Patient is intubated and sedated. Lungs with coarse breath sounds and heart is regular. No lower extremity edema. Abdomen is soft and appears nontender Urinary Catheter Management^: Santos: Cath Placed During This Visit: yes Reason for Continuing Indwelling Catheter: Accurate Measurement of Urinary Output in Critically Ill Patients Urinary Catheter Date of Insertion: 07/10/20 Urinary Catheter Time of Insertion: : Data : 07/11/20 03:28 07/11/20 03:28 Micro: Microbiology 07/10/20 10:30 Blood Culture - Preliminary Blood Gram positive cocci 07/10/20 10:35 Gram Stain - Final Sputum - Endotracheal Tube Aspirate 07/10/20 09:30 Blood Culture - Preliminary Blood SPECIMEN COLLECTED A&P Assessment and plan (1) Acute on chronic respiratory failure with hypoxia: Status: Acute (2) Community acquired pneumonia: Status: Acute (3) Thrombocytopenia: Most likely related to infection Status: Acute (4) Dehydration: Status: Acute (5) Sepsis: As exhibited by tachypnea and leukocytosis. Patient was not tachycardic and was afebrile on presentation. Status: Acute (6) Dementia: Status: Acute (7) COVID-19: Status: Inactive (8) Diabetes mellitus type 2 in nonobese: Status: Acute (9) Hypotension: Likely multifactorial with dehydration, bradycardia and medications playing a role. Status: Acute (10) Bradycardia: Status: Acute Additional A&P Information PLAN: Continue with dexamethasone and remdesivir. Continue Levaquin and Zosyn for now. We will add vancomycin at this point although this appears to be a contamination a true infection cannot be ruled out.. Repeat blood cultures were ordered. We will request echocardiogram and EKG for further evaluation. Patient's is planning to visit patient at 4:00 and I will discuss with him Attestations Medical Necessity Statement*: Patient with respiratory failure requires close ICU monitoring and treatment. Coding Level of Care Code Acute Applique Cutter for [facility] Diagnoses Acute on chronic respiratory failure with hypoxia J96.21 Community acquired pneumonia J18.9 Thrombocytopenia D69.6 Dehydration E86.0 Sepsis A41.9 Dementia F03.90 COVID-19 U07.1 Diabetes mellitus type 2 in nonobese E11.9 Hypotension I95.9 Bradycardia R00.1
--- NOTE | 2020-07-11 09:51 | ECG_ITS ---
[facility] ED Test Date: 2020-07-11 Pat Name: Claire Milian Department: Room: ICU19 Gender: Female Non Destructive Testing Scientist: : 1945 Requested By: Joey Wynn Order Number: [id number] Tayler MD: Meseret Lorenzo M.D. Measurements Intervals Samaria Rate: 43 P: 51 NV: 132 QRS: -32 QRSD: 106 T: 59 QT: 513 QTc: 436 Interpretive Statements SINUS BRADYCARDIA MARKED LEFT AXIS DEVIATION [QRS AXIS < -30] POSSIBLE RIGHT VENTRICULAR CONDUCTION DELAY [RSR (QR) IN V1/V2] WARNING: DATA QUALITY MAY AFFECT INTERPRETATION Compared to ECG 05/19/2020 09:12:28 Sinus rhythm no longer present Short NV interval no longer present Myocardial infarct finding no longer present T-wave abnormality no longer present Possible ischemia no longer present Electronically Signed On 07-13-2020 8:52:02 OUTSIDE INDUSTRIAL SALES REPRESENTATIVE by Meseret Lorenzo M.D. [id number]
--- NOTE | 2020-07-11 09:51 | USCV_ITS ---
[facility] Age: 74 Gender: F : 1945 Exam Date: 07/11/2020 09:55 Ordering Phys: Joey Wynn MD Technologist: Prabhjot Solitario [place] [facility] [place]ST [place]IN BP: 98 / 53 HR: 43 Rhythm: Sinus Technical Quality: Fair MEASUREMENTS (Male / Female) Normal Values 2D ECHO LV Diastolic Diameter PLAX 3.9 cm 4.2 - 5.9 / 3.9 - 5.3 cm LV Systolic Diameter PLAX 2.0 cm IVS Diastolic Thickness 1.0 cm 0.6 - 1.0 / 0.6 - 0.9 cm IVS Systolic Thickness 1.2 cm LVPW Diastolic Thickness 1.3 cm 0.6 - 1.0 / 0.6 - 0.9 cm LVPW Systolic Thickness 1.3 cm LVOT Diameter 2.0 cm LV Ejection Fraction 2D Teich 80.9 % LV Ejection Fraction MOD 2C 71.6 % LV Ejection Fraction 2C AL 70.9 % LA Diameter 3.6 cm LA Width 3.7 cm LA Height 5.0 cm RA Width 3.4 cm RA Height 4.1 cm M-MODE LV Diastolic Diameter MM 5.1 cm 4.2 - 5.9 / 3.9 - 5.3 cm LV Systolic Diameter MM 3.4 cm LV Ejection Fraction MM Teich 63.4 % IVS Diastolic Thickness MM 1.0 cm 0.6 - 1.0 / 0.6 - 0.9 cm IVS Systolic Thickness MM 1.6 cm LVPW Diastolic Thickness MM 1.4 cm 0.6 - 1.0 / 0.6 - 0.9 cm LVPW Systolic Thickness MM 1.9 cm RV Diastolic Diameter MM 2.0 cm Aortic Annulus Diameter 3.3 cm LA Ao Ratio MM 1.1 MV E Point Septal Separation 1.0 cm DOPPLER AV Peak Velocity 219.7 cm/s LVOT Peak Velocity 131.0 cm/s AV Area Cont Eq vti 2.0 cm squared AV Area Cont Eq pk 1.9 cm squared MV Area PHT 5.0 cm squared Mitral E to A Ratio 1.1 MV E' Velocity 54.0 cm/s Mitral E to MV E' Ratio 9.8 Mitral E to LV E' Lateral Ratio 9.8 Mitral E to LV E' Septal Ratio 9.8 TR Peak Velocity 308.3 cm/s TR Peak Gradient 38.0 mmHg TV Peak E Velocity 111.0 cm/s Right Atrial Pressure 3.0 mmHg Pulmonary Artery Systolic Pressu 41.0 mmHg PV Peak Velocity 123.0 cm/s FINDINGS Left Ventricle Normal left ventricular size and systolic function, EF 69 %. No regional wall motion abnormalities. Right Ventricle Normal right ventricular size and systolic function. Right Atrium The right atrium is normal in size. Left Atrium The left atrium is normal in size. Mitral Valve Thickened mitral valve. Mild mitral annular calcification. Aortic Valve Thickened aortic valve. Tricuspid Valve Trace to mild tricuspid valve regurgitation. Pulmonic Valve Pulmonic valve not well visualized. Pericardium No pericardial effusion. Aorta Normal ascending aorta dimension. CONCLUSIONS Normal left ventricular size and systolic function, EF 69 %. No regional wall motion abnormalities. Thickened mitral valve. Mild mitral annular calcification. Thickened aortic valve. Trace to mild tricuspid valve regurgitation. Estimated pulmonary artery peak systolic pressure of 41 mmHg There is no pericardial effusion. There are no intracardiac masses. No previous study is available for comparison. Dr Fabian Gibson MD FACC (Electronically Signed) Final Date: 12 July 2020 18:45 S
[2020-07-11] MEDS: valproic acid 250 mg/5 mL UDC OG-TUBE ×3 (09:59→20:10)
[2020-07-11] MEDS: sennosides-docusate Tablet 1 TAB PO (09:59)
[2020-07-11] MEDS: vancomycin 1,000 MG in sodium chloride 0.9% 250 ML 250 MG IV (12:27)
[2020-07-11] MEDS: lactated ringers 1,000 ML 50 ML IV (12:27)
[2020-07-11] MEDS: propofol 1,000 MG/100 ML INJ 2.7 MG IV (16:41)
[2020-07-11] MEDS: enoxaparin 40 mg/0.4 mL Syringe SUBCUT (16:41)
[2020-07-11] MEDS: remdesivir 100 MG in sodium chloride 0.9% (100 ml) 100 ML IV (17:54)
--- NOTE | 2020-07-11 18:24 | PC.NURSE ---
Shift summary: Pt remains intubated and sedated. Her FIO2 has been decreased to 30% from 65%. She has had 2 positive blood cultures, Dr whitmore. She remains bradycardiac. Her B/P remains stable on Dopamine at 5mcg/kg/min. She also has fentanyl and propofol infusing for sedation: 100mcg/hr and 30mcg/kg/min respectively. Her ad daughter came in for a visit and to discuss code status with Dr Wynn. Family also stated pt will be violent when she is off sedation and extubated. They will have her be a AND. She has received her first dose of remdesivir this evening. Urine output 500ml this shift. Noted tourniquet up under her left sleeve still tied from farm technician labs, arm has red stripe but pulses and circulation good.
--- NOTE | 2020-07-11 19:15 | PC.NURSE ---
Report given CT Hussein.
[2020-07-11] MEDS: vancomycin 1,000 MG in sodium chloride 0.9% 250 ML 166 MG IV (23:07)
[2020-07-12] VITALS (30 sets, daily range): BP systolic 95–147; BP diastolic 50–66; PULSE 44–60; RESP 12–19; TEMP 36.5–36.6; O2SAT 93–97
[2020-07-12] MEDS: piperacillin-tazobactam 3.375 GM in sodium chloride 0.9% (plus) 50 ML IV ×4 (00:13→23:54)
[2020-07-12] MEDS: propofol 1,000 MG/100 ML INJ 10.2 MG IV (00:18)
--- NOTE | 2020-07-12 02:22 | PC.RESP ---
O2 sat is 97% on 28% FiO2, decreased Fio2 to 26%. RN notified. Will continue to monitor.
[2020-07-12] MEDS: DOPamine drip 400 MG/250 ML PREMIX 15.9 MG IV (03:28)
[2020-07-12 03:54] LABS: ABG PCO2 36.1 mmHg (35-45); Arterial Blood Gas Hematocrit 37.6 % (37-47); Base Excess ABG 4.6 mmol/L (-2.0-2.0); Blood Gas Sample Type Arterial; Carboxyhemoglobin 0.7 %THgb (0.4-20.1); HCO3 ABG 27.9 mmol/L (22-26); HGB O2 Sat 91.3 % (95-100); Ionized Calcium Level - ABG 1.1 mmol/L (1.1-1.4); Methemoglobin 0.9 % (0.4-1.5); Oxygen Saturation ABG 92.7; PO2 ABG 56.4 mmHg (80.0-100.0); Potassium Level - ABG 3.6 mmol/L (3.5-5.0); Total Hemoglobin 12.3 g/dL (12-16)
[2020-07-12 03:55] LABS: Alveolar-Arterial Oxygen Gradi 11.1 mmHg (5-10); Blood Gas Sample Site Brachial, right; Blood Gas Tidal Volume 0.45; Oxygen Device VENT
[2020-07-12] MEDS: OLANZapine 5 mg ODT PO ×3 (05:37→23:57)
[2020-07-12 06:05] LABS: Basophils % 0.2 %; Hematocrit 36.7 % (37.0-47.0); Hemoglobin 11.5 g/dL (11.5-15.3); Lymphocytes # 0.9 10^3/uL (0.8-4.8); Lymphocytes % 6.9 %; Mean Corpuscular HGB Conc 31.3 g/dL (30.0-36.0); Mean Corpuscular Hemoglobin 29.7 pg (28.0-34.0); Mean Corpuscular Volume 94.8 fL (81-99); Mean Platelet Volume 13.6 fL (7.4-10.4); Monocytes # 0.7 10^3/uL (0.2-0.9); Monocytes % 5.4 %; Neutrophils # 10.99 10^3/uL (1.8-7.7); Neutrophils % 86.6 %; Nucleated Red Blood Cells % 0 %; Platelet Count 137 10^3/cmm (130-400); Red Blood Count 3.87 10^6/uL (4.1-5.3); Red Cell Distribution Width 13.5 % (12.1-15.1); White Blood Count 12.7 10^3/uL (4.0-10.0)
[2020-07-12 06:18] LABS: Alanine Aminotransferase 23 U/L (0-33); Albumin Level 3.1 g/dL (3.5-5.2); Alkaline Phosphatase 58 IU/L (35-105); Blood Urea Nitrogen 21 mg/dL (8-23); Calcium 8.6 mg/dL (8.5-10.5); Carbon Dioxide 26 mmol/L (22-29); Chloride 105 mmol/L (98-107); Globulin 3.3 g/dL (1.3-4.6); Glucose 221 mg/dL (65-115); Osmolality Calculated 302 mOsm/kg (285-295); Sodium 141 mmol/L (136-145); Total Bilirubin 0.4 mg/dL (0.15-1.2); Total Protein 6.4 g/dL (6.6-8.7)
[2020-07-12 06:21] LABS: Creatinine Clr Calc Pharmacy 54.8733
[2020-07-12 06:22] LABS: Anion Gap 14.1 (5-19); Aspartate Amino Transferase 18 U/L (0-32); Potassium 4.1 mmol/L (3.5-5.1)
--- NOTE | 2020-07-12 08:01 | P.PN_ITS ---
Subjective Subjective: Interval history: Patient is intubated and sedated. I had extensive discussion with patient's and daughter at bedside yesterday. wants to make patient DNR and does not want patient to be reintubated if she gets extubated. Daughter at bedside also agrees. Patient continues to be bradycardic and continues to be hypotensive requiring dopamine support. She is saturating in the high 90s on 35% FiO2 and 8 PEEP. She has good urinary output. Her blood cultures showing 2 out of 4 bottles positive from the same set which is likely a contamination. Repeat blood cultures so far negative. reports that patient is going to be wild if sedation is interrupted. We have discussed that we may need to extubate her quickly when her oxygen requirement and overall condition improves. Vitals/I&O/Wt Last Vital Signs Temp 97.7 F 07/12/20 05:00 Pulse 48 L 07/12/20 06:00 Resp 14 07/12/20 06:00 BP 147/62 07/12/20 06:00 Pulse Ox 97 07/12/20 06:00 07/11/20 07/12/20 07/12/20 22:59 06:59 14:59 Intake Total 289.39 / 3044.557 1649.879 / 4694.436 Output Total 1450 / 1450 650 / 2100 Balance -1160.61 / 1594.557 999.879 / 2594.436 Weight last 48 hrs Weight 56.699 kg Weight 56.699 kg Physical Exam Narrative: EXAM NARRATIVE: Patient is intubated and sedated. Lungs with coarse breath sounds and heart is regular. No lower extremity edema. Abdomen is soft and appears nontender Urinary Catheter Management^: Santos: Cath Placed During This Visit: yes Reason for Continuing Indwelling Catheter: Accurate Measurement of Urinary Output in Critically Ill Patients Urinary Catheter Date of Insertion: 07/10/20 Urinary Catheter Time of Insertion: 10:20 Data : 07/12/20 03:05 07/12/20 03:05 Micro: Microbiology 07/10/20 10:35 Gram Stain - Final Sputum - Endotracheal Tube Aspirate Sputum Culture - Preliminary 07/10/20 10:30 Blood Culture - Preliminary Blood Gram positive cocci 07/11/20 09:00 Blood Culture - Preliminary Blood SPECIMEN COLLECTED 07/10/20 09:30 Blood Culture - Preliminary Blood NEGATIVE TO DATE A&P Assessment and plan (1) Acute on chronic respiratory failure with hypoxia: Status: Acute (2) Community acquired pneumonia: Status: Acute (3) Thrombocytopenia: Most likely related to infection Status: Acute (4) Dehydration: Status: Acute (5) Sepsis: As exhibited by tachypnea and leukocytosis. Patient was not tachycardic and was afebrile on presentation. Status: Acute (6) Dementia: Status: Acute (7) COVID-19: Status: Inactive (8) Diabetes mellitus type 2 in nonobese: Status: Acute (9) Hypotension: Likely multifactorial with dehydration, bradycardia and medications playing a role. Status: Acute (10) Bradycardia: Status: Acute Additional A&P Information PLAN: Continue current monitoring and treatment including albumin for now. Awaiting echocardiogram. Patient's bradycardia is likely related to COVID-19 infection and/or remdesivir. Repeat chest x-ray in several days. Attestations Medical Necessity Statement*: Patient with acute hypoxic respite failure requires close ICU monitoring and treatment. Time Spent in Patient Care: 16 - 35 minutes Coding Level of Care Code Acute Educational Program Assistant for [facility] Fwd Diagnoses Acute on chronic respiratory failure with hypoxia J96.21 Community acquired pneumonia J18.9 Thrombocytopenia D69.6 Dehydration E86.0 Sepsis A41.9 Dementia F03.90 COVID-19 U07.1 Diabetes mellitus type 2 in nonobese E11.9 Hypotension I95.9 Bradycardia R00.1
[2020-07-12] MEDS: valproic acid 250 mg/5 mL UDC OG-TUBE ×3 (08:23→20:31)
[2020-07-12] MEDS: sennosides-docusate Tablet 1 TAB PO (08:23)
[2020-07-12] MEDS: pantoprazole DR 40 mg Tablet PO (08:23)
[2020-07-12 12:26] LABS: Vancomycin Trough 10.5 ug/mL (10-15)
[2020-07-12] MEDS: vancomycin 1,000 MG in sodium chloride 0.9% 250 ML 250 MG IV ×2 (13:20→23:57)
[2020-07-12] MEDS: lactated ringers 1,000 ML 50 ML IV (13:41)
[2020-07-12] MEDS: enoxaparin 40 mg/0.4 mL Syringe SUBCUT (18:04)
[2020-07-12] MEDS: remdesivir 100 MG in sodium chloride 0.9% (100 ml) 100 ML IV (18:05)
[2020-07-12] MEDS: DOPamine drip 400 MG/250 ML PREMIX 10.6 MG IV (23:08)
[2020-07-13] VITALS (34 sets, daily range): BP systolic 98–132; BP diastolic 50–64; PULSE 50–59; RESP 12–18; TEMP 36.3–37.2; O2SAT 93–96
[2020-07-13] MEDS: propofol 1,000 MG/100 ML INJ 10.2 MG IV ×3 (01:54→22:07)
[2020-07-13 04:43] LABS: Basophils % 0.2 %; Hematocrit 32.3 % (37.0-47.0); Lymphocytes # 1.2 10^3/uL (0.8-4.8); Lymphocytes % 11.4 %; Mean Corpuscular Hemoglobin 29.1 pg (28.0-34.0); Mean Corpuscular Volume 93.9 fL (81-99); Mean Platelet Volume 12.6 fL (7.4-10.4); Monocytes # 0.5 10^3/uL (0.2-0.9); Monocytes % 4.3 %; Neutrophils # 8.66 10^3/uL (1.8-7.7); Neutrophils % 83.2 %; Nucleated Red Blood Cells % 0 %; Platelet Count 137 10^3/cmm (130-400); Red Blood Count 3.44 10^6/uL (4.1-5.3); Red Cell Distribution Width 13.8 % (12.1-15.1); White Blood Count 10.4 10^3/uL (4.0-10.0)
[2020-07-13 04:45] LABS: ABG PCO2 40.5 mmHg (35-45); ABG PH Result 7.46 (7.35-7.45); Base Excess ABG 4.8 mmol/L (-2.0-2.0); PO2 ABG 57.1 mmHg (80.0-100.0)
[2020-07-13 04:46] LABS: Oxygen Device VENT
[2020-07-13 04:49] LABS: Arterial Blood Gas Hematocrit 32.5 % (37-47)
[2020-07-13] MEDS: OLANZapine 5 mg ODT PO ×4 (05:02→23:54)
[2020-07-13 05:16] LABS: Alanine Aminotransferase 16 U/L (0-33); Alkaline Phosphatase 48 IU/L (35-105); Aspartate Amino Transferase 15 U/L (0-32); Blood Urea Nitrogen 19 mg/dL (8-23); Calcium 8.1 mg/dL (8.5-10.5); Carbon Dioxide 26 mmol/L (22-29); Chloride 109 mmol/L (98-107); Creatinine Clr Calc Pharmacy 54.8733; Globulin 2.9 g/dL (1.3-4.6); Glucose 107 mg/dL (65-115); Osmolality Calculated 303 mOsm/kg (285-295); Sodium 145 mmol/L (136-145); Total Bilirubin 0.7 mg/dL (0.15-1.2); Total Protein 5.9 g/dL (6.6-8.7)
[2020-07-13] MEDS: potassium chloride oral liq 20 mEq/15 mL UDC 40 MEQ PO (08:31)
[2020-07-13] MEDS: piperacillin-tazobactam 3.375 GM in sodium chloride 0.9% (plus) 50 ML IV ×3 (08:31→23:53)
[2020-07-13] MEDS: valproic acid 250 mg/5 mL UDC OG-TUBE ×3 (08:31→20:09)
[2020-07-13] MEDS: pantoprazole DR 40 mg Tablet PO (08:31)
[2020-07-13] MEDS: sennosides-docusate Tablet 1 TAB PO (08:31)
[2020-07-13] MEDS: DOPamine drip 400 MG/250 ML PREMIX 7.4 MG IV (08:33)
--- NOTE | 2020-07-13 08:46 | PM.PN ---
Subjective Subjective: Interval history: Patient is intubated and sedated. She is on 35% FiO2 and PEEP of 8 saturating in the mid 90s. White blood cell count slightly improved. Platelets and hemoglobin appears stable. Potassium is low this morning and 40 mEq was given. Vitals/I&O/Wt Last Vital Signs Temp 97.7 F 07/12/20 05:00 Pulse 52 L 07/13/20 06:00 Resp 12 07/13/20 08:17 BP 99/55 07/13/20 06:00 Pulse Ox 96 07/13/20 06:00 07/12/20 07/13/20 07/13/20 22:59 06:59 14:59 Intake Total 50 / 704.236 184.087 / 888.323 680 / 680 Output Total 1750 / 1750 700 / 2450 200 / 200 Balance -1700 / -1045.764 -515.913 / -1561.677 480 / 480 Weight last 48 hrs Weight 57.153 kg Weight 56.699 kg Physical Exam Narrative: EXAM NARRATIVE: Patient is intubated and sedated. Lungs with coarse breath sounds and heart is regular. No lower extremity edema. Abdomen is soft and appears nontender Urinary Catheter Management^: Santos: Cath Placed During This Visit: yes Reason for Continuing Indwelling Catheter: Acute Urinary Retention or Obstruction Urinary Catheter Date of Insertion: 07/10/20 Urinary Catheter Time of Insertion: :20 Data : 07/13/20 03:30 07/13/20 03:30 Micro: Microbiology 07/10/20 10:30 Blood Culture - Preliminary Blood Staphylococcus species Strep species, alpha hemolytic 07/11/20 09:00 Blood Culture - Preliminary Blood NEGATIVE TO DATE 07/10/20 10:35 Gram Stain - Final Sputum - Endotracheal Tube Aspirate Sputum Culture - Final A&P Assessment and plan (1) Acute on chronic respiratory failure with hypoxia: Status: Acute (2) Community acquired pneumonia: Status: Acute (3) Thrombocytopenia: Most likely related to infection Status: Acute (4) Dehydration: Status: Acute (5) Sepsis: As exhibited by tachypnea and leukocytosis. Patient was not tachycardic and was afebrile on presentation. Status: Acute (6) Dementia: Status: Acute (7) COVID-19: Status: Inactive (8) Diabetes mellitus type 2 in nonobese: Status: Acute (9) Hypotension: Likely multifactorial with dehydration, bradycardia and medications playing a role. Status: Acute (10) Bradycardia: Status: Acute Additional A&P Information PLAN: Continue current monitoring and treatment. Discussed with RT and we will perform weaning trial Aspiration pneumonia/pneumonitis cannot be ruled out. I am not sure if patient will be able to cooperate with speech therapy once she is extubated Attestations Medical Necessity Statement*: Patient with respiratory failure requires close ICU monitoring and treatment. Coding Level of Care Code Acute Pole Peeling Machine Operator for [facility] Fwd Diagnoses Acute on chronic respiratory failure with hypoxia J96.21 Community acquired pneumonia J18.9 Thrombocytopenia D69.6 Dehydration E86.0 Sepsis A41.9 Dementia F03.90 COVID-19 U07.1 Diabetes mellitus type 2 in nonobese E11.9 Hypotension I95.9 Bradycardia R00.1
[2020-07-13 09:12] LABS: Blood Gas Sample Site Brachial, right; Blood Gas Sample Type Arterial; Blood Gas Tidal Volume 0.45
--- NOTE | 2020-07-13 10:45 | PC.SOCIAL ---
Pg 2 IMM Explained to pt's on Pg 2 IMM, via phone. No questions voiced. Signed, dated, & timed a copy to be scanned into chart.
[2020-07-13] MEDS: vancomycin 1,000 MG in sodium chloride 0.9% 250 ML 250 MG IV ×2 (10:54→23:49)
--- NOTE | 2020-07-13 13:29 | CTR_ITS ---
PROCEDURE INFORMATION: Exam: CT Head Without Contrast Exam date and time: 07/13/2020 2:04 PM Age: 74 years old Clinical indication: Altered mental status/memory loss; Other: See notes; Patient HX: PT is covid+ intubated and sedated - attempted to wake up and was noted to be posturing TECHNIQUE: Imaging protocol: Computed tomography of the head without contrast. Radiation optimization: All CT scans at this facility use at least one of these dose optimization techniques: automated exposure control; mA and/or kV adjustment per patient size (includes targeted exams where dose is matched to clinical indication); or iterative reconstruction. COMPARISON: CT head wo con* [id number] 05/19/2020 8:48 AM RADIATION DOSE METRICS: Total DLP (mGy-cm): 770.46 FINDINGS: Brain: There is volume loss and periventricular low density compatible with chronic small vessel disease changes. There is no acute hemorrhage, edema or mass effect. Cerebral ventricles: No ventriculomegaly. Bones/joints: Unremarkable. No acute fracture. Paranasal sinuses: Visualized sinuses are unremarkable. No fluid levels. Mastoid air cells: Visualized mastoid air cells are well aerated. Soft tissues: Unremarkable. CT/CT head wo con* [id number] IMPRESSION: No acute intracranial abnormality. Unchanged exam. Radiation Dose CTDIVOL = (mGy): DLP = 770.46 (mGy-cm)
[2020-07-13] MEDS: remdesivir 100 MG in sodium chloride 0.9% (100 ml) 100 ML IV (18:19)
[2020-07-14] VITALS (31 sets, daily range): BP systolic 94–155; BP diastolic 51–92; PULSE 49–93; RESP 12–25; TEMP 37.3–37.4; O2SAT 70–98
[2020-07-14 05:04] LABS: ABG PCO2 34.6 mmHg (35-45); ABG PH Result 7.52 (7.35-7.45); Arterial Blood Gas Hematocrit 31.2 % (37-47); Base Excess ABG 5.1 mmol/L (-2.0-2.0); Blood Gas Sample Site Brachial, right; Blood Gas Sample Type Arterial; Blood Gas Tidal Volume 0.45; Carboxyhemoglobin 0.9 %THgb (0.4-20.1); HCO3 ABG 28.1 mmol/L (22-26); HGB O2 Sat 94.1 % (95-100); Ionized Calcium Level - ABG 1.1 mmol/L (1.1-1.4); Methemoglobin 0.7 % (0.4-1.5); Oxygen Device VENT; Oxygen Saturation ABG 95.6; PO2 ABG 64.1 mmHg (80.0-100.0); Total Hemoglobin 10.2 g/dL (12-16)
--- NOTE | 2020-07-14 05:54 | PC.NURSE ---
SHIFT SUMMARY Patient has [employer] running, fentanyl at 100 mcg/hour, propofol at 40 mcg/kg/min, and dopamine at 7.5 mcg/kg/min. Patients ventilator settings, FiO2 35%, PEEP of 8, Rate of 12, and TV 450. Patient does not open eyes and lower limbs decorticate posturing.
--- NOTE | 2020-07-14 06:02 | PC.NURSE ---
DOPAMINE Patients dopamine decreased to 5 mcg/kg/min for MAP maintained greater than 65, but heart rate continues to remain in the low 50s.
--- NOTE | 2020-07-14 06:05 | PC.NURSE ---
SEDATION VACATION Per change of shift report, day shift nurse reported that day shift physician wanted sedation vacation and to possibly extubate at 0630. Per Dr[address] Colbert, sedation vacation/extubation to be done with attending hospitalist after change of shift.
--- NOTE | 2020-07-14 06:10 | PC.NURSE ---
SEDATION Patients propofol at 30 mcg/kg/min most of shift and fentanyl remains at 100 mcg/hour.
[2020-07-14] MEDS: OLANZapine 5 mg ODT PO ×2 (06:24→10:43)
[2020-07-14] MEDS: propofol 1,000 MG/100 ML INJ 10.2 MG IV (07:14)
[2020-07-14] MEDS: sennosides-docusate Tablet 1 TAB PO (08:22)
[2020-07-14] MEDS: piperacillin-tazobactam 3.375 GM in sodium chloride 0.9% (plus) 50 ML IV ×2 (08:23→18:53)
[2020-07-14] MEDS: valproic acid 250 mg/5 mL UDC OG-TUBE (08:23)
[2020-07-14] MEDS: pantoprazole DR 40 mg Tablet PO (08:25)
[2020-07-14] MEDS: DOPamine drip 400 MG/250 ML PREMIX 10.6 MG IV (09:58)
[2020-07-14 10:43] LABS: Alanine Aminotransferase 21 U/L (0-33); Albumin Level 3.5 g/dL (3.5-5.2); Alkaline Phosphatase 59 IU/L (35-105); Anion Gap 14.1 (5-19); Aspartate Amino Transferase 22 U/L (0-32); Blood Urea Nitrogen 22 mg/dL (8-23); Calcium 8.5 mg/dL (8.5-10.5); Carbon Dioxide 27 mmol/L (22-29); Chloride 110 mmol/L (98-107); Globulin 2.7 g/dL (1.3-4.6); Glucose 106 mg/dL (65-115); Osmolality Calculated 310 mOsm/kg (285-295); Potassium 3.1 mmol/L (3.5-5.1); Sodium 148 mmol/L (136-145); Total Bilirubin 1.4 mg/dL (0.15-1.2); Total Protein 6.2 g/dL (6.6-8.7)
[2020-07-14 10:45] LABS: Basophils % 0.3 %; Eosinophils % 0.3 %; Hematocrit 33.1 % (37.0-47.0); Hemoglobin 10.1 g/dL (11.5-15.3); Lymphocytes # 1.1 10^3/uL (0.8-4.8); Lymphocytes % 16.4 %; Mean Corpuscular HGB Conc 30.5 g/dL (30.0-36.0); Mean Corpuscular Hemoglobin 29.5 pg (28.0-34.0); Mean Corpuscular Volume 96.8 fL (81-99); Mean Platelet Volume 12.1 fL (7.4-10.4); Monocytes # 0.5 10^3/uL (0.2-0.9); Monocytes % 6.8 %; Neutrophils # 4.94 10^3/uL (1.8-7.7); Neutrophils % 74.8 %; Nucleated Red Blood Cells % 0 %; Platelet Count 133 10^3/cmm (130-400); Red Blood Count 3.42 10^6/uL (4.1-5.3); Red Cell Distribution Width 13.8 % (12.1-15.1); White Blood Count 6.6 10^3/uL (4.0-10.0)
[2020-07-14 10:56] LABS: Vancomycin Trough 14.3 ug/mL (10-15)
--- NOTE | 2020-07-14 11:04 | PC.NURSE ---
1049 extubated at this time. Propofol, Fentanyl, and Dopamine off. VSS. 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 Patient moves all extremities. No signs of discomfort or distress.
[2020-07-14] MEDS: vancomycin 1,000 MG in sodium chloride 0.9% 250 ML 250 MG IV ×2 (11:49→23:10)
[2020-07-14] MEDS: lactated ringers 1,000 ML 50 ML IV (13:23)
--- NOTE | 2020-07-14 13:37 | PM.PN ---
Subjective Subjective: Interval history: Patient was extubated this morning after she passed trial. Yesterday after sedation interruption RN had concern for patient's eye deviation and CT scan of the head was obtained without contrast showing no acute findings. Patient was evaluated yesterday and I did not appreciate any obvious focal findings. Her eyes were symmetrical but not reactive much. Vitals/I&O/Wt Last Vital Signs Temp 97.3 F L 07/13/20 19:00 Pulse 61 07/14/20 12:00 Resp 18 07/14/20 12:00 BP 130/66 07/14/20 12:00 Pulse Ox 95 07/14/20 12:00 07/13/20 07/14/20 07/14/20 22:59 06:59 14:59 Intake Total 430 / 2731.97 524.69 / 3256.66 705.538 / 705.538 Output Total 200 / 600 950 / 1550 Balance 230 / 2131.97 -425.31 / 1706.66 705.538 / 705.538 Weight last 48 hrs Weight 51.347 kg Weight 57.153 kg Physical Exam Narrative: EXAM NARRATIVE: Patient is extubated this morning. Lungs with coarse breath sounds and heart is regular. No lower extremity edema. Abdomen is soft and appears nontender. Patient does not communicate and still appears to be under some effect of sedation. Urinary Catheter Management^: Santos: Cath Placed During This Visit: yes Reason for Continuing Indwelling Catheter: Accurate Measurement of Urinary Output in Critically Ill Patients Urinary Catheter Date of Insertion: 07/10/20 Urinary Catheter Time of Insertion: 10:20 Data : 07/14/20 09:48 07/14/20 09:48 Micro: Microbiology 07/10/20 10:30 Blood Culture - Preliminary Blood Coagulase negativ staphylococc Viridans streptococcus group A&P Assessment and plan (1) Acute on chronic respiratory failure with hypoxia: Status: Acute (2) Community acquired pneumonia: Status: Acute (3) Thrombocytopenia: Most likely related to infection Status: Acute (4) Dehydration: Status: Acute (5) Sepsis: As exhibited by tachypnea and leukocytosis. Patient was not tachycardic and was afebrile on presentation. Status: Acute (6) Dementia: Status: Acute (7) COVID-19: Status: Inactive (8) Diabetes mellitus type 2 in nonobese: Status: Acute (9) Hypotension: Likely multifactorial with dehydration, bradycardia and medications playing a role. Status: Acute (10) Bradycardia: Status: Acute Additional A&P Information PLAN: Continue current monitoring and treatment. We will request speech therapy evaluation once patient is more alert. Zyprexa discontinued. We will continue IV fluids and antibiotics for now. Attestations Medical Necessity Statement*: Patient with respiratory failure requires close ICU monitoring and treatment. 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
[2020-07-14] MEDS: enoxaparin 40 mg/0.4 mL Syringe SUBCUT (18:53)
[2020-07-14] MEDS: remdesivir 100 MG in sodium chloride 0.9% (100 ml) 100 ML IV (18:54)
--- NOTE | 2020-07-14 19:06 | PC.NURSE ---
Fentanyl waste 45 ml wasted with Belen Chapa RN.
[2020-07-14] MEDS: haloperidol inj 5 mg/mL INJ 1 mL 2 MG IM ×2 (20:20→22:16)
[2020-07-15] VITALS (26 sets, daily range): BP systolic 112–163; BP diastolic 44–98; PULSE 39–84; RESP 16–18; TEMP 37.2–37.6; O2SAT 90–99
[2020-07-15] MEDS: piperacillin-tazobactam 3.375 GM in sodium chloride 0.9% (plus) 50 ML IV ×4 (00:45→23:35)
[2020-07-15] MEDS: haloperidol inj 5 mg/mL INJ 1 mL 2 MG IM (01:24)
[2020-07-15 04:28] LABS: Basophils % 0.3 %; Eosinophils % 0.3 %; Hematocrit 32.3 % (37.0-47.0); Hemoglobin 10.4 g/dL (11.5-15.3); Lymphocytes # 0.7 10^3/uL (0.8-4.8); Lymphocytes % 11.6 %; Mean Corpuscular HGB Conc 32.2 g/dL (30.0-36.0); Mean Corpuscular Hemoglobin 29.5 pg (28.0-34.0); Mean Corpuscular Volume 91.8 fL (81-99); Mean Platelet Volume 11.8 fL (7.4-10.4); Monocytes # 0.4 10^3/uL (0.2-0.9); Monocytes % 6.5 %; Neutrophils # 4.71 10^3/uL (1.8-7.7); Neutrophils % 80.3 %; Nucleated Red Blood Cells % 0 %; Platelet Count 162 10^3/cmm (130-400); Red Blood Count 3.52 10^6/uL (4.1-5.3); Red Cell Distribution Width 13.7 % (12.1-15.1); White Blood Count 5.9 10^3/uL (4.0-10.0)
[2020-07-15 04:46] LABS: Alanine Aminotransferase 23 U/L (0-33); Albumin Level 3.2 g/dL (3.5-5.2); Alkaline Phosphatase 55 IU/L (35-105); Anion Gap 15.8 (5-19); Aspartate Amino Transferase 25 U/L (0-32); Blood Urea Nitrogen 26 mg/dL (8-23); Calcium 8.6 mg/dL (8.5-10.5); Carbon Dioxide 23 mmol/L (22-29); Chloride 111 mmol/L (98-107); Globulin 3.1 g/dL (1.3-4.6); Glucose 121 mg/dL (65-115); Magnesium 1.9 mg/dL (1.7-2.3); Osmolality Calculated 310 mOsm/kg (285-295); Sodium 147 mmol/L (136-145); Total Bilirubin 1.9 mg/dL (0.15-1.2); Total Protein 6.3 g/dL (6.6-8.7)
[2020-07-15 04:53] LABS: Potassium 2.8 mmol/L (3.5-5.1)
[2020-07-15] MEDS: potassium chloride premix 100 ML 50 MEQ IV (07:43)
[2020-07-15] MEDS: vancomycin 1,000 MG in sodium chloride 0.9% 250 ML 250 MG IV ×2 (12:08→23:16)
--- NOTE | 2020-07-15 13:46 | PC.SOCIAL ---
IMM Update Pg. 2 of IMM updated with patient's over the phone.
[2020-07-15] MEDS: enoxaparin 40 mg/0.4 mL Syringe SUBCUT (16:43)
[2020-07-15] MEDS: lactated ringers 1,000 ML 50 ML IV (17:49)
--- NOTE | 2020-07-15 19:15 | PC.NURSE ---
Report given to LUDMILA Hooker. Shift summary: Pt kept her eyes closed all shift, would not even allow eyelid lift for an assessment. Pt not alert, her voice is clear but she rambles. She has been bradycardic throughout shift. Her lungs are clear on 2lpm/NC. Attempts to feed her unsuccessful, she spit out pudding for me and did not swallow well for Speech therapy. She has been incontinent of bowel several times today, in fact that is when she wiggles around in the bed most. She has had a bath and her hair shampooed this shift. Urine output of 100ml clear yellow urine noted.
--- NOTE | 2020-07-15 22:37 | P.PN_ITS ---
Subjective Subjective: Interval history: Confused Vitals/I&O/Wt Last Vital Signs Temp 99.5 F 07/15/20 22:00 Pulse 53 L 07/15/20 22:00 Resp 18 07/15/20 22:00 BP 137/62 07/15/20 22:00 Pulse Ox 94 07/15/20 22:00 07/15/20 07/15/20 07/15/20 06:59 14:59 22:59 Intake Total 300 / 4195.539 2896.000 / 1500.000 Output Total 750 / 1800 1000 / 1000 Balance -450 / -248.609 3114.000 / 1500.000 -1000 / 500.000 Weight last 48 hrs Weight 47.797 kg Weight 51.347 kg Physical Exam Const: COMMON NORMALS: no acute distress and alert HENMT: COMMON NORMALS: normocephalic and atraumatic HEAD & SCALP: normocephalic and atraumatic Eye: COMMON NORMALS: conjunctivae normal and no scleral icterus CONJUN CTIVA: Yes conjunctivae normal Neck/C-Spine: COMMON NORMALS: no lymphadenopathy Lymph: LYMPHATIC: no lymphadenopathy noted Resp: OTHER: Minimal bibasilar Rales Cardio: COMMON NORMALS: regular rate, regular rhythm and No murmurs present (Cardio) RATE: regular rate RHYTHM: regular rhythm OTHER: No lower extremity edema GI: COMMON NORMALS: Soft to palpation PALPATION: Yes Soft to palpation RECTAL EXAM: deferred Extremity: COMMON NORMALS: normal to inspection and capillary refill normal Neuro: COMMON NORMALS: no focal motor deficits (On gross examination) SENSORIUM/ORIENTATION: Yes alert Skin: COMMON NORMALS: no rashes or lesions noted GENERAL SKIN EXAM: no rashes or lesions noted Urinary Catheter Management^: Santos: Cath Placed During This Visit: yes Reason for Continuing Indwelling Catheter: Accurate Measurement of Urinary Output in Critically Ill Patients Urinary Catheter Date of Insertion: 07/10/20 Urinary Catheter Time of Insertion: 10:20 Data : 07/15/20 03:50 07/15/20 03:50 Micro: Microbiology 07/10/20 09:30 Blood Culture - Final Blood NO GROWTH AFTER 5 DAYS A&P Assessment and plan (1) Acute on chronic respiratory failure with hypoxia: Status: Acute (2) Community acquired pneumonia: Status: Acute (3) Thrombocytopenia: Most likely related to infection Status: Acute (4) Dehydration: Status: Acute (5) Sepsis: As exhibited by tachypnea and leukocytosis. Patient was not tachycardic and was afebrile on presentation. Status: Acute (6) Dementia: Status: Acute (7) COVID-19: Status: Inactive (8) Diabetes mellitus type 2 in nonobese: Status: Acute (9) Hypotension: Likely multifactorial with dehydration, bradycardia and medications playing a role. Status: Acute (10) Bradycardia: Status: Acute Additional A&P Information PLAN: Weaned to 2L via NC K replaced in AM Repeat BMP Extubated Likly to return on hospice Attestations Medical Necessity Statement*: Will need to continue hospitalization for management of respiratory failure Time Spent in Patient Care: Greater than 35 minutes (>than 50% of time spent in counselling and/or direct pt care on unit) . 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
[2020-07-16] VITALS (16 sets, daily range): BP systolic 138–157; BP diastolic 53–81; PULSE 42–79; RESP 14–29; TEMP 36.6–37.1; O2SAT 95–100
[2020-07-16 05:32] LABS: Basophils % 0.2 %; Eosinophils % 0.4 %; Hematocrit 30.4 % (37.0-47.0); Hemoglobin 9.7 g/dL (11.5-15.3); Lymphocytes # 0.6 10^3/uL (0.8-4.8); Lymphocytes % 11.7 %; Mean Corpuscular HGB Conc 31.9 g/dL (30.0-36.0); Mean Corpuscular Hemoglobin 29.8 pg (28.0-34.0); Mean Corpuscular Volume 93.3 fL (81-99); Mean Platelet Volume 11.2 fL (7.4-10.4); Monocytes # 0.4 10^3/uL (0.2-0.9); Monocytes % 8.1 %; Neutrophils # 3.71 10^3/uL (1.8-7.7); Neutrophils % 78.8 %; Nucleated Red Blood Cells % 0 %; Platelet Count 194 10^3/cmm (130-400); Red Blood Count 3.26 10^6/uL (4.1-5.3); Red Cell Distribution Width 13.9 % (12.1-15.1); White Blood Count 4.7 10^3/uL (4.0-10.0)
[2020-07-16 05:52] LABS: Alanine Aminotransferase 18 U/L (0-33); Albumin Level 3.5 g/dL (3.5-5.2); Alkaline Phosphatase 44 IU/L (35-105); Anion Gap 17.9 (5-19); Aspartate Amino Transferase 17 U/L (0-32); Blood Urea Nitrogen 24 mg/dL (8-23); Calcium 8.9 mg/dL (8.5-10.5); Carbon Dioxide 22 mmol/L (22-29); Chloride 109 mmol/L (98-107); Globulin 2.9 g/dL (1.3-4.6); Glucose 163 mg/dL (65-115); Magnesium 1.8 mg/dL (1.7-2.3); Osmolality Calculated 310 mOsm/kg (285-295); Sodium 146 mmol/L (136-145); Total Bilirubin 2.3 mg/dL (0.15-1.2); Total Protein 6.4 g/dL (6.6-8.7)
[2020-07-16 05:55] LABS: Potassium 2.9 mmol/L (3.5-5.1)
--- NOTE | 2020-07-16 06:35 | PC.NURSE ---
SHIFT SUMMARY PT HAS BEEN ABHAY CARDIAC ALL NIGHT. RESPONDS TO PAINFUL STIMULI ONLY. TONEY 1000 ML OUTPUT.
--- NOTE | 2020-07-16 15:49 | P.DS_ITS ---
Discharge Providers Date of Admission: 07/10/20 13:10 Date of Discharge: July 16, 2020 Attending Provider at Admission: Joey Wynn MD Attending Provider at Discharge: Celso Malcolm Diagnoses at Discharge Discharge Diagnosis (1) Acute on chronic respiratory failure with hypoxia: Status: Acute (2) Community acquired pneumonia: Status: Acute (3) Thrombocytopenia: Status: Acute (4) Dehydration: Status: Acute (5) Sepsis: Status: Acute (6) Dementia: Status: Acute (7) COVID-19: Status: Inactive (8) Diabetes mellitus type 2 in nonobese: Status: Acute (9) Hypotension: Status: Acute (10) Bradycardia: Status: Acute Reason for Visit Reason for Visit: ams Hospital Course Hospital Course 74 year old female, resident of nursing facility at [facility] was brought to emergency department with worsening mentation and significant desaturation. She was using at nursing facility 5 L by nasal cannula at the baseline and required 15 L to bring saturations to 80s. Patient end up being intubated in ER after Dr. Batista discussed with patient's . Apparently was not able to see patient for the last several months. He reported that patient frequently was unable to recognize him. In emergency department patient had significant amount of thick phlegm suctioned and it was sent to lab for Gram stain and culture. She was diagnosed with Covid 19 infection couple weeks ago. In ER patient was started on dexamethasone and remdesivir as well as Levaquin. CTA showed no evidence of PE but significant atelectasis in both bases. Patient's hospital already left and I was unable to discuss with him. History is limited. shortly after admission patient was intubated and placed on mechanical ventilation. Extubated successfully and wean to 2 L of O2 via nasal cannula. Noted to have severe hyperkalemia which was replaced. Patient was discharged to hospice services. Physical Exam Const: COMMON NORMALS: no acute distress and alert HENMT: COMMON NORMALS: normocephalic and atraumatic HEAD & SCALP: normocephalic and atraumatic Eye: COMMON NORMALS: conjunctivae normal and no scleral icterus CONJUNCTIVA: Yes conjunctivae normal Neck/C-Spine: COMMON NORMALS: no lymphadenopathy Lymph: LYMPHATIC: no lymphadenopathy noted Resp: OTHER: Minimal bibasilar Rales Cardio: COMMON NORMALS: regular rate, regular rhythm and No murmurs present (Cardio) RATE: regular rate RHYTHM: regular rhythm OTHER: No lower extremity edema GI: COMMON NORMALS: Soft to palpation PALPATION: Yes Soft to palpation RECTAL EXAM: deferred Extremity: COMMON NORMALS: normal to inspection and capillary refill normal Neuro: COMMON NORMALS: no focal motor deficits (On gross examination) SENSORIUM/ORIENTATION: Yes alert Skin: COMMON NORMALS: no rashes or lesions noted GENERAL SKIN EXAM: no rashes or lesions noted Urinary Catheter Management^: Santos: Cath Placed During This Visit: yes Reason for Continuing Indwelling Catheter: Accurate Measurement of Urinary Output in Critically Ill Patients Urinary Catheter Date of Insertion: 07/10/20 Urinary Catheter Time of Insertion: 10:20 Discharge Data Data Completed and Pending: Completed Studies During Hospitalization Category Date Time Status CT angio chest PE protcl [id number] Stat Cat Scan 07/10/20 09:[address] head wo con* 7 0450 Urgent Cat Scan 07/13/20 13:29 Completed XR chest 1V diandra ble [id number] Stat Exams 07/10/20 09:47 Completed XR chest 1V diandra ble [id number] Urgent Exams 07/10/20 11:43 Completed CV echo complete* [id number] Routine Ultrasound 07/11/20 09:51 Completed Vitals: Last Vital Signs Temp 98.3 F 07/16/20 16:37 Pulse 49 L 07/16/20 16:37 Resp 20 H 07/16/20 16:37 BP 145/67 07/16/20 16:37 Pulse Ox 100 07/16/20 16:37 Discharge Plan Discharge Patient Disposition: Hospice - Medical Facility Condition: Fair Prescriptions: New morphine concentrate 100 mg/5 mL (20 mg/mL) solution 5 mg PO Q6H PRN (Reason: pain) Qty: 30 RF: 0 Lorazepam Intensol 2 mg/mL concentrate 0.5 mg PO Q6H PRN (Reason: anxiety) Qty: 30 RF: 0 scopolamine base 1 mg over 3 days patch 3 day 1 patch transdermal Q3D PRN (Reason: secretions) Qty: 4 RF: 0 Continued acetaminophen 325 mg Tablet 650 mg PO QID PRN (Reason: Pain) RF: 0 trazodone 50 mg Tablet 50 mg PO BEDTIME@20 RF: 0 Senna-S 8.6-50 mg Tablet 1 tab-cap PO DAILY@08 RF: 0 tramadol 50 mg Tablet 50 mg PO Q8H PRN (Reason: Pain) RF: 0 pantoprazole 20 mg Tablet,Delayed Release (Dr/Ec) 20 mg PO DAILY@06 RF: 0 olanzapine 5 mg Tablet,Disintegrating 5 mg PO QID@00,06,12,18 RF: 0 Depakote ER 250 mg Tablet Extended Release 24 Hr 250 mg PO TID@08,14,20 RF: 0 bisacodyl 10 mg Suppository 10 mg NE DAILY PRN (Reason: Constipation) RF: 0 Discontinued dexamethasone 6 mg Tablet 6 mg PO DAILY@14 RF: 0 alprazolam 0.25 mg Tablet 0.25 mg PO Q8H PRN (Reason: Anxiety) RF: 0 magnesium hydroxide [Milk of Magnesia] 400 mg/5 mL Suspension 30 ml PO DAILY PRN (Reason: Constipation) RF: 0 Discharge Orders: Discharge Order (Routine); Ordered 07/16/20 Ordered By: Celso Malcolm Referrals: [facility] [Outside] Discharge Diet: Usual diet Discharge Activity: Increase activity as tolerated Patient Instructions: Scopolamine (Absorbed through the skin), Lorazepam (By mouth), Morphine, Slow Release (By mouth) Discharge Attestations Time Spent in Discharge Care*: greater than 30 min Specific Discharge Activities: educating patient, educating and/or supporting family/caregiver, discussing with pcp/other providers, discussing with case briefer/social workers/dc planners, documenting/other paperwork and evaluating patient/reviewing data Status at Discharge: Cognitive status at discharge: mildly impaired cognition , Behavioral status at discharge: can be uncooperative , Functional status at discharge: other assisted ambulation Overall status at discharge: patient is progressing back to baseline Quality Metrics Clinical Quality Measures During this hospital stay, did patient experience: None Coding Level of Care Code Acute Dental Scheduling Coordinator for [facility] Fwd Exam Comprehensive Diagnoses Acute on chronic respiratory failure with hypoxia J96.21 Community acquired pneumonia J18.9 Thrombocytopenia D69.6 Dehydration E86.0 Sepsis A41.9 Dementia F03.90 COVID-19 U07.1 Diabetes mellitus type 2 in nonobese E11.9 Hypotension I95.9 Bradycardia R00.1
--- NOTE | 2020-07-16 16:27 | PC.NURSE ---
DISCHARGE TO [facility]. REPORT CALLED TO DEBRA. TONEY INTACT & DRAINING IV'S REMOVED
--- NOTE | 2020-07-16 16:39 | PC.NURSE ---
PT /DAUGHTER AWARE OF TRANSFER TO [facility] SENT WITH PT
== END 2020-07-16 16:30 | disposition hospice, inpatient (51) | DRG 871 ==
LOC: ER 14:18 → ICU 14:53
PROVIDERS: Admitting Provider Internal Medicine; Emergency Provider Family Medicine; Visit Provider Hospitalist
DX: A41.9 Sepsis, unspecified organism (principal); J96.21 Acute and chronic respiratory failure with hypoxia; J69.0 Pneumonitis due to inhalation of food and vomit; U07.1 COVID-19; D69.6 Thrombocytopenia, unspecified; E86.0 Dehydration; G30.9 Alzheimer's disease, unspecified; F02.80 Dementia in other diseases classified elsewhere, unspecified severity, without behavioral disturbance, psychotic disturbance, mood disturbance, and anxiety; E11.9 Type 2 diabetes mellitus without complications; I95.9 Hypotension, unspecified; R00.1 Bradycardia, unspecified; E87.5 Hyperkalemia; Z66 Do not resuscitate
CPT/HCPCS: 12345; 31500; 36415; 36416; 36600; 51702; 70450; 71045; 71275; 80051; 80053; 80202; 82330; 82803; 82805; 82962; 83605; 83615; 83735; 85025; 85378; 85384; 86140; 87040; 87070; 87077; 87205; 92526; 92610; 93005; 93306; 94002; 94003; 94799; 96372; 96375; 99283; 99292; J0330; J1100; J1265; J1630; J1650; J1956; J2543; J2704; J3010; J3370; J3480; J3490; J7050; P9047; Q9967